=== PATIENT | male | born 1975 | race Caucasian/White ===

== ENCOUNTER 2018-07-20 09:03 | Inpatient (IN) | payer OTHER ==
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
[2018-07-20] MEDS ORDERED: MENTHOL/PHENOL 1 EACH UD MM PRN (10:16)
[2018-07-20] MEDS ORDERED: chlordiazePOXIDE HCL 25 MG CAPSULE PO ONE (10:16)
[2018-07-20] MEDS ORDERED: ACETAMINOPHEN 325 MG TABLET (FP) PO PRN (10:16)
[2018-07-20] MEDS ORDERED: MAGNESIUM HYDROX 2400MG/30ML ORAL SUSPENSION 30 ML CUP PO PRN (10:16)
[2018-07-20] MEDS ORDERED: chlordiazePOXIDE HCL 25 MG CAPSULE PO PRN (10:16)
[2018-07-20] MEDS ORDERED: NICOTINE POLACRILEX 2 MG GUM BUC PRN (10:16)
[2018-07-20] MEDS ORDERED: LOPERAMIDE HCL 2 MG CAPSULE PO PRN (10:16)
[2018-07-20] MEDS ORDERED: MAGNESIUM CITRATE 300 ML BOTTLE PO PRN (10:16)
[2018-07-20] MEDS ORDERED: MAG HYDROX/AL HYDROX/SIMETH 30 ML UNIT-DOSE CUP PO PRN (10:16)
[2018-07-20] MEDS ORDERED: guaiFENesin 200 MG/10 ML 10 ML UNIT-DOSE CUPS PO PRN (10:19)
[2018-07-20 10:21] VITALS: BMI 23.5
[2018-07-20] MEDS ORDERED: ALBUTEROL SO4 0.083% IH SOL 2.5 MG/3 ML VIAL.NEB. NEB PRN (10:27)
[2018-07-20] MEDS: NICOTINE 21 MG/24 HOURS TOPICAL PATCH TD SCH (12:14)
[2018-07-20] MEDS: PANTOPRAZOLE 20 MG TABLET (FP) PO SCH (12:14)
[2018-07-20 16:36] LABS: URINE APPEARANCE CLEAR; URINE BILIRUBIN NEGATIVE (<2.0 mg/dL); URINE COLOR DKYELLOW; URINE GLUCOSE (UA) NEGATIVE (NEGATIVE); URINE KETONE NEGATIVE (NEGATIVE); URINE LEUK ESTERASE NEGATIVE (NEGATIVE); URINE NITRITE NEGATIVE (NEGATIVE); URINE PROTEIN 1+ (NEGATIVE)
[2018-07-20 16:55] LABS: EPI CELLS RARE /HPF (FEW); URINE MUCUS RARE
[2018-07-20] MEDS: chlordiazePOXIDE HCL 25 MG CAPSULE PO SCH ×2 (17:22→22:05)
[2018-07-20] MEDS: IBUPROFEN 400 MG TABLET (FP) PO PRN (17:24)
[2018-07-20] MEDS: levETIRAcetam 500 MG TABLET (FP) PO SCH (22:04)
[2018-07-20] MEDS: MELATONIN 5 MG TABLETS PO PRN (22:06)
[2018-07-20] MEDS: THIAMINE HCL 100 MG TABLET (FP) PO SCH (23:17)
[2018-07-21] MEDS: chlordiazePOXIDE HCL 25 MG CAPSULE PO SCH ×4 (05:15→22:21)
[2018-07-21] MEDS: NICOTINE 21 MG/24 HOURS TOPICAL PATCH TD SCH (10:15)
[2018-07-21] MEDS: levETIRAcetam 500 MG TABLET (FP) PO SCH ×2 (10:16→22:21)
[2018-07-21] MEDS: PRENATAL VITAMINS W/ FOLIC ACID TABLET (FP) PO SCH (10:16)
[2018-07-21] MEDS: PANTOPRAZOLE 20 MG TABLET (FP) PO SCH (10:17)
[2018-07-21 10:37] LABS: HEMATOCRIT 39.8 % (35.4-49); HEMOGLOBIN 12.9 GM/dL (11.7-16.9); MCH 29.1 pg (25.7-33.7); MCHC 32.5 g/dl (32.0-35.9); MEAN CELL VOLUME 89.4 fl (80-96); PLATELET COUNT 293 K/MM3 (134-434); RBC 4.45 M/mm3 (4.00-5.60); RDW 15.2 % (11.9-15.9); WHITE BLOOD COUNT 6.3 K/mm3 (4.0-10.0)
[2018-07-21 10:56] LABS: ALBUMIN 3.1 g/dl (3.4-5.0); ALK PHOS 91 U/L (45-117); ANION GAP 9 MMOL/L (8-16); BILIRUBIN,TOTAL 0.8 mg/dL (0.2-1); BLOOD UREA NITROGEN 7 mg/dL (7-18); CALCIUM 8.8 mg/dL (8.5-10.1); CHLORIDE 103 mmol/L (98-107); CO2 27 mmol/L (21-32); CREATININE 0.7 mg/dL (0.55-1.3); GLUCOSE,RANDOM 123 mg/dL (74-106); POTASSIUM 3.6 mmol/L (3.5-5.1); SGOT/AST 33 U/L (15-37); SGPT/ALT 66 U/L (13-61); SODIUM 138 mmol/L (136-145); TOT PROT 6.3 g/dl (6.4-8.2)
[2018-07-21] MEDS ORDERED: PNEUMOC 13-VAL CONJ-DIP CRM/PF 0.5 ML DISP.SYRIN IM ONE ×2 (12:00)
[2018-07-21] MEDS ORDERED: PNEUMOCOCCAL 23 VACCINE 0.5 ML VIAL IM ONE (12:00)
--- NOTE | 2018-07-21 12:22 | EKG ---
Test Reason : Blood Pressure : / mmHG Vent. Rate : 059 BPM Atrial Rate : 059 BPM P-R Int : 126 ms QRS Dur : 088 ms QT Int : 432 ms P-R-T Axes : 034 046 043 degrees QTc Int : 427 ms SINUS BRADYCARDIA WITH SINUS ARRHYTHMIA OTHERWISE NORMAL ECG NO PREVIOUS ECGS AVAILABLE Confirmed by BREANNA KAYE MD ([id number]) on 07/21/2018 12:22:06 PM Referred By: FAIZAN CRUZ Confirmed By:BREANNA KAYE MD
--- NOTE | 2018-07-21 14:54 | PN ---
[facility] CIWA - CIWA Score Nausea/Vomitin-Mild Nausea/No Vomiting Muscle Tremors: 4-Moderate,w/Arms Extend Anxiety: 3 Agitation: 3 Paroxysmal Sweats: 1-Minimal Palms Moist Orientation: 2-Disoriented Date<2 days Tacttile Disturbances: 0-None Auditory Disturbances: 0-None Visual Disturbances: 0-None Headache: 2-Mild CIWA-Ar Total Score: 16 BHS Progress Note (SOAP) Subjective: headaches tremor sweat restlessness gi distress anxiety Objective: 07/21/18 14:53 Vital Signs Temperature 97.3 F L 07/21/18 09:25 Pulse Rate 63 07/21/18 09:25 Respiratory Rate 18 07/21/18 09:25 Blood Pressure 122/75 07/21/18 09:25 O2 Sat by Pulse Oximetry (%) Laboratory Last Values WBC 6.3 K/mm3 (4.0-10.0) 07/21/18 07:30 RBC 4.45 M/mm3 (4.00-5.60) 07/21/18 07:30 Hgb 12.9 GM/dL (11.7-16.9) 07/21/18 07:30 Hct 39.8 % (35.4-49) 07/21/18 07:30 MCV 89.4 fl (80-96) 07/21/18 07:30 MCH 29.1 pg (25.7-33.7) D 07/21/18 07:30 MCHC 32.5 g/dl (32.0-35.9) 07/21/18 07:30 RDW 15.2 % (11.9-15.9) D 07/21/18 07:30 Plt Count 293 K/MM3 (134-434) 07/21/18 07:30 MPV 8.0 fl (7.5-11.1) 07/21/18 07:30 Sodium 138 mmol/L (136-145) 07/21/18 07:30 Potassium 3.6 mmol/L (3.5-5.1) 07/21/18 07:30 Chloride 103 mmol/L (98-107) 07/21/18 07:30 Carbon Dioxide 27 mmol/L (21-32) 07/21/18 07:30 Anion Gap 9 MMOL/L (8-16) 07/21/18 07:30 BUN 7 mg/dL (7-18) 07/21/18 07:30 Creatinine 0.7 mg/dL (0.55-1.3) 07/21/18 07:30 Creat Clearance w eGFR > 60 (>60) 07/21/18 07:30 Random Glucose 123 mg/dL (74-106) H 07/21/18 07:30 Calcium 8.8 mg/dL (8.5-10.1) 07/21/18 07:30 Total Bilirubin 0.8 mg/dL (0.2-1) 07/21/18 07:30 AST 33 U/L (15-37) 07/21/18 07:30 ALT 66 U/L (13-61) H 07/21/18 07:30 Alkaline Phosphatase 91 U/L (45-117) 07/21/18 07:30 Total Protein 6.3 g/dl (6.4-8.2) L 07/21/18 07:30 Albumin 3.1 g/dl (3.4-5.0) L 07/21/18 07:30 Urine Color Dkyellow 07/20/18 15:50 Urine Appearance Clear 07/20/18 15:50 Urine pH 6.0 (5.0-8.0) 07/20/18 15:50 Ur Specific [place] 1.023 (1.010-1.035) 07/20/18 15:50 Urine Protein 1+ (NEGATIVE) H 07/20/18 15:50 Urine Glucose (UA) Negative (NEGATIVE) 07/20/18 15:50 Urine Ketones Negative (NEGATIVE) 07/20/18 15:50 Urine Blood Negative (NEGATIVE) 07/20/18 15:50 Urine Nitrite Negative (NEGATIVE) 07/20/18 15:50 Urine Bilirubin Negative (<2.0 mg/dL) 07/20/18 15:50 Urine Urobilinogen 2.0 mg/dL (0.2-1.0) 07/20/18 15:50 Ur Leukocyte Esterase Negative (NEGATIVE) 07/20/18 15:50 Urine WBC (Auto) 1 /hpf (3-5) 07/20/18 15:50 Urine RBC (Auto) 1 /hpf (0-3) 07/20/18 15:50 Ur Epithelial Cells Rare /HPF (FEW) 07/20/18 15:50 Urine Mucus Rare 07/20/18 15:50 RPR Titer Nonreactive (NONREACTIVE) 07/21/18 07:30 HIV 1&2 Antibody Screen Negative 07/21/18 07:30 HIV P24 Antigen Negative 07/21/18 07:30 lab noted Assessment: 07/21/18 14:54 withdrawal sx Plan: continue detox
[2018-07-21] MEDS: IBUPROFEN 400 MG TABLET (FP) PO PRN (16:47)
[2018-07-21] MEDS: THIAMINE HCL 100 MG TABLET (FP) PO SCH (22:21)
[2018-07-21] MEDS: MELATONIN 5 MG TABLETS PO PRN (22:22)
[2018-07-22] MEDS: chlordiazePOXIDE HCL 25 MG CAPSULE PO SCH ×2 (05:19→10:27)
[2018-07-22] MEDS ORDERED: CLOTRIMAZOLE 1% CREAM 15 GM TUBE TP SCH (10:00)
[2018-07-22] MEDS ORDERED: CLOTRIMAZOLE/BETAMET DIPROP TOPICAL CREAM 45 GM TUBE TP SCH (10:00)
--- NOTE | 2018-07-22 10:03 | PN ---
[facility] CIWA - CIWA Score Nausea/Vomitin-No Nausea/No Vomiting Muscle Tremors: 3 Anxiety: 4-Mod. Anxious/Guarded Agitation: 4-Moderately Restless Paroxysmal Sweats: 3 Orientation: 0-Oriented Tacttile Disturbances: 3-Moderate Itch/Numb/Burn Auditory Disturbances: 0-None Visual Disturbances: 0-None Headache: 0-None Present CIWA-Ar Total Score: 17 BHS Progress Note (SOAP) Subjective: Tremors, Sweating, Anxious. Patient reports areas of skin on bilateral ribcages and hip areas that feel "itchy." Patient also reports peeling skin near tip of middle finger of right hand. Objective: PATIENT A & O X 3, OBSERVED AMBULATING ON UNIT. IN NO ACUTE DISTRESS. CLUSTER OF SMALL ELEVATED ERYTHEMATOUS LESIONS NOTED ON BI;LATERAL RIBCAGE AREAS (UPPER ASPECT) AND IN BILATERAL HIP (ASIS) AREAS. NO DISCHARGE NOTED AT AFFECTED SITES. PEELING SKIN NOTED NEAR TIP AND P.I.P. ON MIDDLE FINGER OF RIGHT HAND. ERYTHEMA NOTED ON UNDERLYING SKIN. NO UNUSUAL DISCHARGE NOTED AT SITE. 07/22/18 09:58 Vital Signs Temperature 97.2 F L 07/22/18 09:43 Pulse Rate 94 H 07/22/18 09:43 Respiratory Rate 18 07/22/18 09:43 Blood Pressure 111/78 07/22/18 09:43 O2 Sat by Pulse Oximetry (%) Laboratory Tests 07/20/18 07/21/18 07/21/18 15:50 07:30 07:30 WBC 6.3 RBC 4.45 Hgb 12.9 Hct 39.8 MCV 89.4 MCH 29.1 D MCHC 32.5 RDW 15.2 D Plt Count 293 MPV 8.0 Sodium 138 Potassium 3.6 Chloride 103 Carbon Dioxide 27 Anion Gap 9 BUN 7 Creatinine 0.7 Creat Clearance w eGFR > 60 Random Glucose 123 H Calcium 8.8 Total Bilirubin 0.8 AST 33 ALT 66 H Alkaline Phosphatase 91 Total Protein 6.3 L Albumin 3.1 L Urine Color Dkyellow Urine Appearance Clear Urine pH 6.0 Ur Specific [place] 1.023 Urine Protein 1+ H Urine Glucose (UA) Negative Urine Ketones Negative Urine Blood Negative Urine Nitrite Negative Urine Bilirubin Negative Urine Urobilinogen 2.0 Ur Leukocyte Esterase Negative Urine WBC (Auto) 1 Urine RBC (Auto) 1 Ur Epithelial Cells Rare Urine Mucus Rare RPR Titer HIV 1&2 Antibody Screen HIV P24 Antigen 07/21/18 07/21/18 07:30 07:30 WBC RBC Hgb Hct MCV MCH MCHC RDW Plt Count MPV Sodium Potassium Chloride Carbon Dioxide Anion Gap BUN Creatinine Creat Clearance w eGFR Random Glucose Calcium Total Bilirubin AST ALT Alkaline Phosphatase Total Protein Albumin Urine Color Urine Appearance Urine pH Ur Specific [place] Urine Protein Urine Glucose (UA) Urine Ketones Urine Blood Urine Nitrite Urine Bilirubin Urine Urobilinogen Ur Leukocyte Esterase Urine WBC (Auto) Urine RBC (Auto) Ur Epithelial Cells Urine Mucus RPR Titer Nonreactive HIV 1&2 Antibody Screen Negative HIV P24 Antigen Negative LABS NOTED. LEVETIRACETAM LEVEL PENDING. 07/22/18 09:59 Assessment: 07/22/18 09:59 WITHDRAWAL SYMPTOMS. DERMATITIS. FUNGAL INFECTION OF SKIN OF MIDDLE FINGER OF RIGHT HAND. 07/22/18 10:09 Plan: CONTINUE DETOX. LOTRISONE TOPICAL FOR DERRMATITIS ON BILATERAL RIBCAGES AND HIP AREAS. CLOTRIMAZOLE TOPICAL FOR AFFECTED AREA OF SKIN NEAR TIP OF MIDDLE FINGER OF RIGHT HAND. INCREASE DAILY PO FLUID INTAKE.
[2018-07-22] MEDS: PANTOPRAZOLE 20 MG TABLET (FP) PO SCH (10:27)
[2018-07-22] MEDS: NICOTINE 21 MG/24 HOURS TOPICAL PATCH TD SCH (10:27)
[2018-07-22] MEDS: PRENATAL VITAMINS W/ FOLIC ACID TABLET (FP) PO SCH (10:27)
[2018-07-22] MEDS: levETIRAcetam 500 MG TABLET (FP) PO SCH ×2 (10:27→22:27)
[2018-07-22] MEDS: CLOTRIMAZOLE/BETAMET DIPROP TOPICAL CREAM 45 GM TUBE TP SCH ×2 (14:37→22:28)
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
[2018-07-22] MEDS: IBUPROFEN 400 MG TABLET (FP) PO PRN (17:31)
[2018-07-22] MEDS: chlordiazePOXIDE 5 MG CAPSULE PO SCH ×2 (17:31→22:26)
[2018-07-22] MEDS ORDERED: MELATONIN 5 MG TABLETS PO PRN (22:00)
[2018-07-22] MEDS: THIAMINE HCL 100 MG TABLET (FP) PO SCH (22:28)
[2018-07-23] MEDS: chlordiazePOXIDE 5 MG CAPSULE PO SCH ×2 (06:42→10:45)
--- NOTE | 2018-07-23 10:14 | PN ---
BHS Progress Note (SOAP) Subjective: feeling better today less sweat no gi distress right lateral trunk rashes "getting better" sleep better at night Objective: 07/23/18 14:19 Vital Signs Temperature 97.6 F 07/23/18 10:59 Pulse Rate 70 07/23/18 10:59 Respiratory Rate 20 07/23/18 10:59 Blood Pressure 110/90 07/23/18 10:59 O2 Sat by Pulse Oximetry (%) Laboratory Last Values WBC 6.3 K/mm3 (4.0-10.0) 07/21/18 07:30 RBC 4.45 M/mm3 (4.00-5.60) 07/21/18 07:30 Hgb 12.9 GM/dL (11.7-16.9) 07/21/18 07:30 Hct 39.8 % (35.4-49) 07/21/18 07:30 MCV 89.4 fl (80-96) 07/21/18 07:30 MCH 29.1 pg (25.7-33.7) D 07/21/18 07:30 MCHC 32.5 g/dl (32.0-35.9) 07/21/18 07:30 RDW 15.2 % (11.9-15.9) D 07/21/18 07:30 Plt Count 293 K/MM3 (134-434) 07/21/18 07:30 MPV 8.0 fl (7.5-11.1) 07/21/18 07:30 Sodium 138 mmol/L (136-145) 07/21/18 07:30 Potassium 3.6 mmol/L (3.5-5.1) 07/21/18 07:30 Chloride 103 mmol/L (98-107) 07/21/18 07:30 Carbon Dioxide 27 mmol/L (21-32) 07/21/18 07:30 Anion Gap 9 MMOL/L (8-16) 07/21/18 07:30 BUN 7 mg/dL (7-18) 07/21/18 07:30 Creatinine 0.7 mg/dL (0.55-1.3) 07/21/18 07:30 Creat Clearance w eGFR > 60 (>60) 07/21/18 07:30 Random Glucose 123 mg/dL (74-106) H 07/21/18 07:30 Calcium 8.8 mg/dL (8.5-10.1) 07/21/18 07:30 Total Bilirubin 0.8 mg/dL (0.2-1) 07/21/18 07:30 AST 33 U/L (15-37) 07/21/18 07:30 ALT 66 U/L (13-61) H 07/21/18 07:30 Alkaline Phosphatase 91 U/L (45-117) 07/21/18 07:30 Total Protein 6.3 g/dl (6.4-8.2) L 07/21/18 07:30 Albumin 3.1 g/dl (3.4-5.0) L 07/21/18 07:30 Urine Color Dkyellow 07/20/18 15:50 Urine Appearance Clear 07/20/18 15:50 Urine pH 6.0 (5.0-8.0) 07/20/18 15:50 Ur Specific [place] 1.023 (1.010-1.035) 07/20/18 15:50 Urine Protein 1+ (NEGATIVE) H 07/20/18 15:50 Urine Glucose (UA) Negative (NEGATIVE) 07/20/18 15:50 Urine Ketones Negative (NEGATIVE) 07/20/18 15:50 Urine Blood Negative (NEGATIVE) 07/20/18 15:50 Urine Nitrite Negative (NEGATIVE) 07/20/18 15:50 Urine Bilirubin Negative (<2.0 mg/dL) 07/20/18 15:50 Urine Urobilinogen 2.0 mg/dL (0.2-1.0) 07/20/18 15:50 Ur Leukocyte Esterase Negative (NEGATIVE) 07/20/18 15:50 Urine WBC (Auto) 1 /hpf (3-5) 07/20/18 15:50 Urine RBC (Auto) 1 /hpf (0-3) 07/20/18 15:50 Ur Epithelial Cells Rare /HPF (FEW) 07/20/18 15:50 Urine Mucus Rare 07/20/18 15:50 RPR Titer Nonreactive (NONREACTIVE) 07/21/18 07:30 HIV 1&2 Antibody Screen Negative 07/21/18 07:30 HIV P24 Antigen Negative 07/21/18 07:30 lab noted Assessment: 07/23/18 14:20 mild withdrawal sx Plan: medically supervised detox
[2018-07-23] MEDS: levETIRAcetam 500 MG TABLET (FP) PO SCH ×2 (10:45→22:21)
[2018-07-23] MEDS: PANTOPRAZOLE 20 MG TABLET (FP) PO SCH (10:45)
[2018-07-23] MEDS: FLUoxetine HCL 20 MG CAPSULE (FP) PO SCH (10:45)
[2018-07-23] MEDS: PRENATAL VITAMINS W/ FOLIC ACID TABLET (FP) PO SCH (10:45)
[2018-07-23] MEDS: CLOTRIMAZOLE/BETAMET DIPROP TOPICAL CREAM 45 GM TUBE TP SCH ×2 (10:47→22:21)
[2018-07-23] MEDS: NICOTINE 21 MG/24 HOURS TOPICAL PATCH TD SCH (10:48)
--- NOTE | 2018-07-23 14:42 | PN ---
Psychiatric Progress Note Vital Signs: Vital Signs Period Temp Pulse Resp BP Sys/Lizama Pulse Ox Last 24 Hr 96.8 F-98.1 F 53-84 16-20 110-130/73-90 Date of Session: 07/23/18 Chief Complaint:: " I am nervous. I need medication and ukrainian books to read". HPI: Patient is re-evaluated with assistance from official bilingual interpreter # [id number]. Day 3 of detoxification for alcohol dependence. Counselor Kumar requested this follow-up for clarification of bilingual interpreter's statement that the patient has threatened to hurt himself. Hospital course has been uneventful until the observation that Mr Can is increasingly irritable, hostile and overly anxious on approach. ROS: Patient is alert and fully oriented. Ambulatory (cane). Well groomed. Anxious. Current Medications: Active Medications Generic Name Dose Route Start Last Admin Trade Name Freq PRN Reason Stop Dose Admin Acetaminophen 650 mg 07/20/18 10:16 Tylenol - PO Q4H PRN FEVER Al Hydroxide/Mg Hydroxide 30 ml 07/20/18 10:16 Mylanta Oral Suspension - PO Q6H PRN DYSPEPSIA Albuterol Sulfate 1 amp 07/20/18 10:27 Ventolin 0.083% Nebulizer Soln - NEB Q4H PRN SHORT OF BREATH/WHEEZING Chlordiazepoxide HCl 10 mg 07/23/18 17:00 Librium - PO 07/24/18 11:01 [id number] YUE Clotrimazole 1 applic 07/22/18 10:30 07/23/18 10:47 Lotrisone Cream (Large Tube) - TP 1 appful BID YUE Administration Eucalyptus/Menthol/Phenol/Sorbitol 1 each 07/20/18 10:16 Cepastat Lozenge - MM Q4H PRN SORE THROAT Fluoxetine HCl 20 mg 07/23/18 10:00 07/23/18 10:45 Prozac - PO 20 mg DAILY YUE Administration Guaifenesin 10 ml 07/20/18 10:19 Robitussin - PO Q4H PRN COUGH Ibuprofen 400 mg 07/20/18 10:16 07/22/18 17:31 Motrin - PO 400 mg Q6H PRN Administration PAIN LEVEL 4-6 Levetiracetam 1,000 mg 07/20/18 22:00 01/02/19 10:45 Keppra - PO 1,000 mg BID UYE Administration Loperamide HCl 4 mg 07/20/18 10:16 Imodium - PO Q6H PRN DIARRHEA Magnesium Citrate 300 ml 07/20/18 10:16 Citroma - PO Q48H PRN CONSTIPATION Magnesium Hydroxide 30 ml 07/20/18 10:16 Milk Of Magnesia - PO DAILY PRN CONSTIPATION Melatonin 10 mg 07/22/18 22:00 Melatonin PO HS PRN INSOMNIA Nicotine 21 mg 07/20/18 10:30 07/23/18 10:48 Nicoderm Patch - TD Not Given DAILY YUE Nicotine Polacrilex 2 mg 07/20/18 10:16 Nicorette Gum - BUC Q2H PRN NICOTINE REPLACEMENT RX Pantoprazole Sodium 20 mg 07/20/18 10:30 07/23/18 10:45 Protonix - PO 20 mg DAILY YUE Administration Multivit/Folic Acid/Iron 1 tab 07/21/18 10:00 07/23/18 10:45 Vitamins (Sjr) - PO 1 tab DAILY YUE Administration Thiamine HCl 100 mg 07/20/18 22:00 07/22/18 22:28 Vitamin B1 - PO 100 mg HS YUE Administration Current Side Effect: No Lab tests ordered: No Lab tests reviewed: Yes Provider note:: Chart reviewed. Consult note from hot plate plywood press offbearer Julian Calderon : read + appreciated. Nurses's progress notes revisited. Met with patient. Interview conducted through official translation (ukrainian bilingual interpreter). Total face to face time:: 35 Mental Status Exam - Mental Status Exam Alert and Oriented to: Time, Place, Person Cognitive Function: Good Patient Appearance: Well Groomed (well shaven, bald-headed ; appears stated age) Mood: Nervous, Anxious, Irritable (at the beginning of interview ; patient got calmer as conversation went on) Affect: Appropriate, Mood Congruent Patient Behavior: Guarded (at first; becomes more cooperative and accomodating) , Appropriate (after the initial five minutes of the interview), Cooperative Voice Loudness: Normal Thought Process: Goal Oriented (appropriate conduct in response to program writer's translated answers) Hallucinations: Denies Suicidal Ideation: Denies Homicidal Ideation: Denies Insight/Judgement: Fair (as evidenced by his calming down upon learning, from ukrainian bilingual interpreter, that his requests are validated and soon to be honored) Sleep: Fair Appetite: Good Gait/Station: Other (walks with a cane) Psychiatric Treatment Plan - Problem List (1) Alcohol dependence with uncomplicated withdrawal Current Visit: Yes Comment: . (2) Alcohol-induced mood disorder Current Visit: Yes Comment: . (3) Nicotine dependence Current Visit: Yes Qualifiers: Nicotine product type: cigarettes Substance use status: uncomplicated Qualified Code(s): F17.210 - Nicotine dependence, cigarettes, uncomplicated Comment: . (4) Insomnia Current Visit: Yes Comment: .
[2018-07-23] MEDS: chlordiazePOXIDE HCL 10 MG CAPSULE PO SCH ×2 (17:38→22:22)
[2018-07-23] MEDS: THIAMINE HCL 100 MG TABLET (FP) PO SCH (22:21)
[2018-07-23] MEDS ORDERED: ALBUTEROL SO4 8 GM HFA INHALER IH ONE (22:48)
[2018-07-23] MEDS ORDERED: ALBUTEROL SO4 8 GM HFA INHALER IH PRN (22:55)
[2018-07-24] MEDS: chlordiazePOXIDE HCL 10 MG CAPSULE PO SCH ×2 (05:36→11:02)
[2018-07-24 06:44] VITALS: BP 115/82; PULSE 53; TEMP 96.8
--- NOTE | 2018-07-24 10:34 | DS ---
[facility] Detox Discharge Summary Admission Date: 07/20/18 Discharge Date: 07/24/18 - History Present History: Alcohol Dependence Additional Comments: 43 years old male admitted on 07/20/18 for alcohol withdrawal stabilization completed detox regimen tolerated well alert no acute distress aftercare [facility] Physical Exam Results Vital Signs: Vital Signs Temperature 96.8 F L 07/24/18 06:43 Pulse Rate 53 L 07/24/18 06:43 Respiratory Rate 18 07/24/18 06:43 Blood Pressure 115/82 07/24/18 06:43 O2 Sat by Pulse Oximetry (%) Pertinent Admission Physical Exam Findings: alcohol withdrawal sx Laboratory Last Values WBC 6.3 K/mm3 (4.0-10.0) 07/21/18 07:30 RBC 4.45 M/mm3 (4.00-5.60) 07/21/18 07:30 Hgb 12.9 GM/dL (11.7-16.9) 07/21/18 07:30 Hct 39.8 % (35.4-49) 07/21/18 07:30 MCV 89.4 fl (80-96) 07/21/18 07:30 MCH 29.1 pg (25.7-33.7) D 07/21/18 07:30 MCHC 32.5 g/dl (32.0-35.9) 07/21/18 07:30 RDW 15.2 % (11.9-15.9) D 07/21/18 07:30 Plt Count 293 K/MM3 (134-434) 07/21/18 07:30 MPV 8.0 fl (7.5-11.1) 07/21/18 07:30 Sodium 138 mmol/L (136-145) 07/21/18 07:30 Potassium 3.6 mmol/L (3.5-5.1) 07/21/18 07:30 Chloride 103 mmol/L (98-107) 07/21/18 07:30 Carbon Dioxide 27 mmol/L (21-32) 07/21/18 07:30 Anion Gap 9 MMOL/L (8-16) 07/21/18 07:30 BUN 7 mg/dL (7-18) 07/21/18 07:30 Creatinine 0.7 mg/dL (0.55-1.3) 07/21/18 07:30 Creat Clearance w eGFR > 60 (>60) 07/21/18 07:30 Random Glucose 123 mg/dL (74-106) H 07/21/18 07:30 Calcium 8.8 mg/dL (8.5-10.1) 07/21/18 07:30 Total Bilirubin 0.8 mg/dL (0.2-1) 07/21/18 07:30 AST 33 U/L (15-37) 07/21/18 07:30 ALT 66 U/L (13-61) H 07/21/18 07:30 Alkaline Phosphatase 91 U/L (45-117) 07/21/18 07:30 Total Protein 6.3 g/dl (6.4-8.2) L 07/21/18 07:30 Albumin 3.1 g/dl (3.4-5.0) L 07/21/18 07:30 Urine Color Dkyellow 07/20/18 15:50 Urine Appearance Clear 07/20/18 15:50 Urine pH 6.0 (5.0-8.0) 07/20/18 15:50 Ur Specific [place] 1.023 (1.010-1.035) 07/20/18 15:50 Urine Protein 1+ (NEGATIVE) H 07/20/18 15:50 Urine Glucose (UA) Negative (NEGATIVE) 07/20/18 15:50 Urine Ketones Negative (NEGATIVE) 07/20/18 15:50 Urine Blood Negative (NEGATIVE) 07/20/18 15:50 Urine Nitrite Negative (NEGATIVE) 07/20/18 15:50 Urine Bilirubin Negative (<2.0 mg/dL) 07/20/18 15:50 Urine Urobilinogen 2.0 mg/dL (0.2-1.0) 07/20/18 15:50 Ur Leukocyte Esterase Negative (NEGATIVE) 07/20/18 15:50 Urine WBC (Auto) 1 /hpf (3-5) 07/20/18 15:50 Urine RBC (Auto) 1 /hpf (0-3) 07/20/18 15:50 Ur Epithelial Cells Rare /HPF (FEW) 07/20/18 15:50 Urine Mucus Rare 07/20/18 15:50 RPR Titer Nonreactive (NONREACTIVE) 07/21/18 07:30 HIV 1&2 Antibody Screen Negative 07/21/18 07:30 HIV P24 Antigen Negative 07/21/18 07:30 lab noted - Treatment Hospital Course: Detox Protocol Followed, Detoxed Safely, Responded well, Discharged Condition Good, Rehab Referral Accepted Patient has Accepted a Rehab Referral to: [facility] - Medication Discharge Medications: Ambulatory Orders Fluoxetine HCl [Prozac] 20 mg PO DAILY 07/22/18 Albuterol Sulfate Inhaler - [Ventolin HFA Inhaler -] 2 inh PO Q4H PRN #1 inhaler 07/23/18 levETIRAcetam [Keppra -] 1,000 mg PO BID #60 tablet 07/23/18 - Diagnosis (1) Seizure Current Visit: Yes Status: Chronic (2) Alcohol dependence with uncomplicated withdrawal Current Visit: Yes Status: Acute (3) Asthma Current Visit: Yes Status: Chronic Qualifiers: Asthma severity: unspecified severity Asthma persistence: intermittent Asthma complication type: uncomplicated Qualified Code(s): J45.20 - Mild intermittent asthma, uncomplicated (4) Nicotine dependence Current Visit: Yes Status: Acute Qualifiers: Nicotine product type: cigarettes Substance use status: in withdrawal Qualified Code(s): F17.213 - Nicotine dependence, cigarettes, with withdrawal (5) Weight loss Current Visit: Yes Status: Acute - AMA Did Patient Leave Against Medical Advice: No
[2018-07-24] MEDS: PANTOPRAZOLE 20 MG TABLET (FP) PO SCH (11:03)
[2018-07-24] MEDS: NICOTINE 21 MG/24 HOURS TOPICAL PATCH TD SCH (11:03)
[2018-07-24] MEDS: levETIRAcetam 500 MG TABLET (FP) PO SCH (11:03)
[2018-07-24] MEDS: CLOTRIMAZOLE/BETAMET DIPROP TOPICAL CREAM 45 GM TUBE TP SCH (11:03)
[2018-07-24] MEDS: FLUoxetine HCL 20 MG CAPSULE (FP) PO SCH (11:03)
[2018-07-24] MEDS: PRENATAL VITAMINS W/ FOLIC ACID TABLET (FP) PO SCH (11:05)
== END 2018-07-24 14:26 | disposition other institution (70) | DRG 775 ==
LOC: YASAS 09:03 → Y3N 10:47
PROC: HZ2ZZZZ Detoxification Services for Substance Abuse Treatment (ICD-10-PCS; principal; 2018-07-20)
DX: F10.230 Alcohol dependence with withdrawal, uncomplicated (principal); F17.213 Nicotine dependence, cigarettes, with withdrawal; J45.20 Mild intermittent asthma, uncomplicated; G40.909 Epilepsy, unspecified, not intractable, without status epilepticus; L30.9 Dermatitis, unspecified; B36.9 Superficial mycosis, unspecified; M89.9 Disorder of bone, unspecified
CPT/HCPCS: 36415; 80053; 80177; 81003; 81015; 85027; 86593; 87389; 93005; 93010

== ENCOUNTER 2018-07-24 13:22 | Inpatient (IN) | payer OTHER ==
--- NOTE | 2018-07-24 10:38 | HP ---
[facility] Rehab Assess/Revision - Admission History Admitted to Rehab from: [facility] Date of Admission to Rehab: 07/24/18 - Findings Detox History & Physical reviewed: Yes Concur with findings: Yes Comments/Additional Findings: transferred from detox to rehab admission as per protocol Inpatient Rehab Admission - Initial Determination Are CD services needed?: Yes Free of communicable disease: Yes Not in need of hospitalization: Yes - Rehab Admission Criteria Previous failed treatment: Yes Poor recovery environment: Yes Comorbidities: Yes Lacks judgement: No Patient is meeting Inpatient Rehab admission criteria:: Yes
[~2018-07-24 13:22] MED LIST: ALBUTEROL SO4 8 GM HFA INHALER IH PRN; LOPERAMIDE HCL 2 MG CAPSULE PO PRN; MAG HYDROX/AL HYDROX/SIMETH 30 ML UNIT-DOSE CUP PO PRN; MAGNESIUM CITRATE 300 ML BOTTLE PO PRN; MAGNESIUM HYDROX 2400MG/30ML ORAL SUSPENSION 30 ML CUP PO PRN; MENTHOL/PHENOL 1 EACH UD MM PRN; NICOTINE 14 MG/24 HOURS TOPICAL PATCH TD PRN; NICOTINE POLACRILEX 2 MG GUM BUC PRN; P-EPHED 60MG/TRIPROLIDI 2.5MG TABLET PO PRN; guaiFENesin/D-METHORPHAN HB 10 ML UNIT-DOSE CUPS PO PRN
[2018-07-24] MEDS: IBUPROFEN 400 MG TABLET (FP) PO PRN (13:49)
[2018-07-24] MEDS: THIAMINE HCL 100 MG TABLET (FP) PO SCH (21:22)
[2018-07-24] MEDS: levETIRAcetam 500 MG TABLET (FP) PO SCH (21:22)
[2018-07-24] MEDS: CLOTRIMAZOLE 1% CREAM 15 GM TUBE TP SCH (21:24)
[2018-07-24] MEDS: MELATONIN 5 MG TABLETS PO PRN (21:24)
[2018-07-25] MEDS: levETIRAcetam 500 MG TABLET (FP) PO SCH ×2 (10:15→21:32)
[2018-07-25] MEDS: CLOTRIMAZOLE 1% CREAM 15 GM TUBE TP SCH ×3 (10:15→21:34)
[2018-07-25] MEDS: PRENATAL VITAMINS W/ FOLIC ACID TABLET (FP) PO SCH (10:15)
--- NOTE | 2018-07-25 11:14 | HP ---
Psychiatrist Admission - Data Date of interview: 07/25/18 Admission source: David/Dileep Identifying data: This is the first [facility] Rehabilitation admission for this 43 years old male, employed Medical History: Significant for bronchial asthma, seizure disorder and left leg weakness. Smokes cigarettes 1 ppd Psychiatric History: Psychiatric consultation completed with assistance from Mexican Intrepretor #[id number]. Patient reports a three month admission in 2018 at [facility] in [place] for depression and alcohol. States he was discharged approximately two-three months ago. As per pharmacy claims he was prescribed prozac 20mg + Naltrexone 50mg BID + Gabapentin 800mg BID + Keppra 500mg BID. Patient has not accepted medications in three months. Patient denies h/o outpatient psychiatric care. At present he reports depressed mood. He denies h/o suicide attempt. Vital Signs: Vital Signs - 24 hr 07/24/18 07/25/18 07/25/18 13:39 00:30 03:30 Temperature 98.3 F Pulse Rate 79 Respiratory 18 20 20 Rate Blood Pressure 126/86 07/25/18 07/25/18 07/25/18 07:04 07:17 07:58 Temperature 97.8 F 97.8 F Pulse Rate 68 68 63 Respiratory 20 16 16 Rate Blood Pressure 106/66 106/66 125/80 Allergies/Adverse Reactions: Allergies Allergy/AdvReac Type Severity Reaction Status Date / Time No Known Allergies Allergy Verified 07/24/18 14:02
--- NOTE | 2018-07-25 12:05 | HP ---
<Elly Guillermo - Last Filed: 07/25/18 12:33> Psychiatrist Admission - Data Date of interview: 07/25/18 Admission source: [address] [place] [address] Identifying data: This is the first admission to [address] [place] [address] inpatient rehabilitation for this 43 years old turkmen single male father of 2 (14,16 yo), resides in senior care ,supported by [facility]. Medical History: Seizure disorder,BA,H/O R leg fracture [id number]. Psychiatric History: patient reports depression on and off for a few years .He was seen by psychiatrist while being in inpatient rehabilitaion at [facility] last summer(spent about 3 months).Patient was on Gabapentin,Trazodone. Physical/Sexual Abuse/Trauma History: patient denies Vital Signs: Vital Signs - 24 hr 07/24/18 07/25/18 07/25/18 13:39 00:30 03:30 Temperature 98.3 F Pulse Rate 79 Respiratory 18 20 20 Rate Blood Pressure 126/86 07/25/18 07/25/18 07/25/18 07:04 07:17 07:58 Temperature 97.8 F 97.8 F Pulse Rate 68 68 63 Respiratory 20 16 16 Rate Blood Pressure 106/66 106/66 125/80 Allergies/Adverse Reactions: Allergies Allergy/AdvReac Type Severity Reaction Status Date / Time No Known Allergies Allergy Verified 07/24/18 14:02 Date of last physical exam: 07/24/18 Concur with the findings of this exam: Yes - Substance Abuse/Tx History Hx Alcohol Use: Yes (reports drinking since 19 yo,one liter of vodka daily) Hx Substance Use: No Substance Use Type: Alcohol Hx Substance Use Treatment: Yes (longest abstinence about 6 months) Mental Status Exam - Mental Status Exam Alert and Oriented to: Time, Place, Person Cognitive Function: Grossly Intact Patient Appearance: Well Groomed Mood: Sad, Anxious Affect: Mood Congruent Patient Behavior: Cooperative Speech Pattern: Clear Voice Loudness: Normal Thought Process: Goal Oriented Thought Disorder: Not Present Hallucinations: Denies Suicidal Ideation: Denies Homicidal Ideation: Denies Insight/Judgement: Fair Sleep: Fair Appetite: Good Muscle strength/Tone: Normal Gait/Station: Normal Psychiatric Findings - Problem List ([place] 1, 2,3) (1) Alcohol dependence Current Visit: Yes Status: Chronic (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 (3) Dermatitis Current Visit: Yes Status: Chronic (4) Fungal infection of skin Current Visit: Yes Status: Chronic (5) Seizure disorder Current Visit: Yes Status: Chronic (6) Nicotine dependence Current Visit: Yes Status: Acute Qualifiers: Nicotine product type: cigarettes Substance use status: in withdrawal Qualified Code(s): F17.213 - Nicotine dependence, cigarettes, with withdrawal Comment: . 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 - Initial Treatment Plan Initial Treatment Plan: Will monitor progress. <Alexsandra Pitt - Last Filed: 07/29/18 13:57> Psychiatrist Admission - Data Vital Signs: Vital Signs - 24 hr 07/29/18 07/29/18 07/29/18 00:30 03:30 06:50 Temperature 98.1 F Pulse Rate 54 L Respiratory 18 18 16 Rate Blood Pressure 125/78
[2018-07-25] MEDS ORDERED: hydrOXYzine PAMOATE 50 MG CAPSULE (FP) PO PRN (12:25)
[2018-07-25] MEDS: NALTREXONE HCL 50 MG TABLET PO SCH (13:39)
[2018-07-25] MEDS: GABAPENTIN 400 MG CAPSULE (FP) PO SCH ×2 (13:39→21:32)
[2018-07-25] MEDS: hydrOXYzine PAMOATE 50 MG CAPSULE (FP) PO SCH ×3 (13:40→21:32)
[2018-07-25] MEDS: FLUoxetine HCL 20 MG CAPSULE (FP) PO SCH (13:40)
[2018-07-25] MEDS: IBUPROFEN 400 MG TABLET (FP) PO PRN (13:41)
[2018-07-25] MEDS: MELATONIN 5 MG TABLETS PO PRN (21:32)
[2018-07-25] MEDS: THIAMINE HCL 100 MG TABLET (FP) PO SCH (21:32)
[2018-07-26] MEDS: GABAPENTIN 400 MG CAPSULE (FP) PO SCH ×3 (06:26→21:22)
[2018-07-26] MEDS: CLOTRIMAZOLE 1% CREAM 15 GM TUBE TP SCH ×2 (09:48→21:24)
[2018-07-26] MEDS: NALTREXONE HCL 50 MG TABLET PO SCH (09:48)
[2018-07-26] MEDS: FLUoxetine HCL 20 MG CAPSULE (FP) PO SCH (09:48)
[2018-07-26] MEDS: ACETAMINOPHEN 325 MG TABLET (FP) PO PRN ×2 (09:49→21:24)
[2018-07-26] MEDS: levETIRAcetam 500 MG TABLET (FP) PO SCH ×2 (09:49→21:22)
[2018-07-26] MEDS: PRENATAL VITAMINS W/ FOLIC ACID TABLET (FP) PO SCH (09:49)
[2018-07-26] MEDS: hydrOXYzine PAMOATE 50 MG CAPSULE (FP) PO SCH ×4 (13:04→21:22)
[2018-07-26] MEDS: THIAMINE HCL 100 MG TABLET (FP) PO SCH (21:22)
[2018-07-27] MEDS: GABAPENTIN 400 MG CAPSULE (FP) PO SCH ×3 (06:47→21:37)
[2018-07-27] MEDS: hydrOXYzine PAMOATE 50 MG CAPSULE (FP) PO SCH ×4 (09:32→21:37)
[2018-07-27] MEDS: levETIRAcetam 500 MG TABLET (FP) PO SCH ×2 (09:33→21:37)
[2018-07-27] MEDS: PRENATAL VITAMINS W/ FOLIC ACID TABLET (FP) PO SCH (09:33)
[2018-07-27] MEDS: FLUoxetine HCL 20 MG CAPSULE (FP) PO SCH (09:33)
[2018-07-27] MEDS: CLOTRIMAZOLE 1% CREAM 15 GM TUBE TP SCH ×2 (09:34→22:08)
[2018-07-27] MEDS: NALTREXONE HCL 50 MG TABLET PO SCH (11:33)
[2018-07-27] MEDS: IBUPROFEN 400 MG TABLET (FP) PO PRN (11:44)
[2018-07-27] MEDS: THIAMINE HCL 100 MG TABLET (FP) PO SCH (21:37)
[2018-07-28] MEDS: GABAPENTIN 400 MG CAPSULE (FP) PO SCH ×3 (06:34→21:07)
[2018-07-28] MEDS: ACETAMINOPHEN 325 MG TABLET (FP) PO PRN (08:52)
[2018-07-28] MEDS: levETIRAcetam 500 MG TABLET (FP) PO SCH ×2 (10:25→21:07)
[2018-07-28] MEDS: PRENATAL VITAMINS W/ FOLIC ACID TABLET (FP) PO SCH (10:25)
[2018-07-28] MEDS: FLUoxetine HCL 20 MG CAPSULE (FP) PO SCH (10:25)
[2018-07-28] MEDS: hydrOXYzine PAMOATE 50 MG CAPSULE (FP) PO SCH ×4 (10:25→21:07)
[2018-07-28] MEDS: CLOTRIMAZOLE 1% CREAM 15 GM TUBE TP SCH (10:26)
[2018-07-28] MEDS: NALTREXONE HCL 50 MG TABLET PO SCH (10:27)
[2018-07-28] MEDS ORDERED: HYDROCORTISONE 1% TOPICAL CREAM 30 GM TUBE TP SCH (15:00)
--- NOTE | 2018-07-28 15:04 | PN ---
[facility] Progress Note Note: PT C/O ITCHY RASH TO UPPER CHEST REPORTING HE MIGHT HAVE BEEN BITTEN BY INSECT( BED BUG) WHILE IN DETOX. REVIEW OF DETOX NOTES INDICATED ONGOING C/O RASH BUT NO INDICATION OF BED BUG BITE. PT WAS ADMITTED TO REHAB ON 07/24/18 FROM DETOX. PT REPORTS HE SHAVED HIS CHEST TODAY. ALERT O X 3. 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 Vital Signs - 24 hr 07/28/18 07/28/18 03:30 07:09 Temperature 97.5 F L Pulse Rate 88 Respiratory 20 16 Rate Blood Pressure 116/79 SOME SCATTERED AREAS OF RED PAPULAR RASH ON UPPER CHEST AND SHOULDERS. BACK EXAM WITH GENERALIZED BROWN MACULAR SPOTS. NAD PLAN:HYDROCORTISONE CREAM 1% APPLY TO CHEST DIRECTED.
[2018-07-28] MEDS ORDERED: HYDROCORTISONE 1% TOPICAL CREAM 30 GM TUBE TP ONE (15:35)
[2018-07-28] MEDS: IBUPROFEN 400 MG TABLET (FP) PO PRN (16:53)
[2018-07-28] MEDS: HYDROCORTISONE 1% TOPICAL CREAM 30 GM TUBE TP SCH (21:07)
[2018-07-28] MEDS: THIAMINE HCL 100 MG TABLET (FP) PO SCH (21:07)
[2018-07-28] MEDS: MELATONIN 5 MG TABLETS PO PRN (21:08)
[2018-07-29] MEDS: GABAPENTIN 400 MG CAPSULE (FP) PO SCH ×2 (06:21→14:23)
[2018-07-29] MEDS: HYDROCORTISONE 1% TOPICAL CREAM 30 GM TUBE TP SCH ×2 (06:21→14:23)
[2018-07-29 06:51] VITALS: BP 125/78; PULSE 54; TEMP 98.1
[2018-07-29] MEDS: FLUoxetine HCL 20 MG CAPSULE (FP) PO SCH (10:21)
[2018-07-29] MEDS: levETIRAcetam 500 MG TABLET (FP) PO SCH (10:21)
[2018-07-29] MEDS: hydrOXYzine PAMOATE 50 MG CAPSULE (FP) PO SCH ×2 (10:21→14:23)
[2018-07-29] MEDS: NALTREXONE HCL 50 MG TABLET PO SCH (10:22)
[2018-07-29] MEDS: PRENATAL VITAMINS W/ FOLIC ACID TABLET (FP) PO SCH (10:22)
--- NOTE | 2018-07-29 14:00 | PN ---
[facility] Progress Note Note: Called by nursing staff requesting discharge order for patient. Patient is discharged today and referred back to his [facility]. Scripts for Prozac, Naltrexone and Vistaril electronically transferred to [facility] pharmacy. Refer to staff note for further information about this discharge.
--- NOTE | 2018-07-29 14:51 | PN ---
[facility] Progress Note Note: PT WAS DISCHARGED TODAY TO [facility] PER NURSE BRUCE. 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 ALERT O X 3. NAD.
== END 2018-07-29 14:30 | disposition home or self-care (01) | DRG 772 ==
LOC: YASAS 13:22 → Y5N 13:23
PROVIDERS: ADMIT Psychiatry & Neurology Psychiatry; ATTEND Psychiatry & Neurology Psychiatry
PROC: HZ42ZZZ Group Counseling for Substance Abuse Treatment, Cognitive-Behavioral (ICD-10-PCS; principal; 2018-07-24)
DX: F10.20 Alcohol dependence, uncomplicated (principal); F17.213 Nicotine dependence, cigarettes, with withdrawal; F10.24 Alcohol dependence with alcohol-induced mood disorder; G40.909 Epilepsy, unspecified, not intractable, without status epilepticus; L30.9 Dermatitis, unspecified; B36.9 Superficial mycosis, unspecified; M89.8X9 Other specified disorders of bone, unspecified site

== ENCOUNTER 2018-11-20 08:53 | Inpatient (IN) | payer OTHER ==
[2018-11-20 10:01] VITALS: BMI 24.5
--- NOTE | 2018-11-20 10:49 | HP ---
CIWA Score Nausea/Vomitin Muscle Tremors: 2 Anxiety: 3 Agitation: 3 Paroxysmal Sweats: 1-Minimal Palms Moist Orientation: 0-Oriented Tacttile Disturbances: 1-Very Mild Itch/Numbness Auditory Disturbances: 1-Very Mild Visual Disturbances: 0-None Headache: 2-Mild CIWA-Ar Total Score: 15 - Admission Criteria OASAS Guidelines: Admission for Medically Managed Detox: Requires at least one of the followin. CIWA greater than 12 2. Seizures within the past 24 hours 3. Delirium tremens within the past 24 hours 4. Hallucinations within the past 24 hours 5. Acute intervention needed for co occurring medical disorder 6. Acute intervention needed for co occurring psychiatric disorder 7. Severe withdrawal that cannot be handled at a lower level of care (continued vomiting, continued diarrhea, abnormal vital signs) requiring intravenous medication and/or fluids 8. Admission ROS S - HPI Chief Complaint: i need help to stop drinking alcohol Allergies/Adverse Reactions: Allergies Allergy/AdvReac Type Severity Reaction Status Date / Time No Known Allergies Allergy Verified 11/20/18 09:47 History of Present Illness: this 43 years old male with alcohol dependence ,seen in [facility] last night , refer for detox, has previous admissions before,last 08/26/18 to 08/30/[address] [facility] had seizure last11/19/18 no significant period of sobriety history of asthma history of depression history of fx of left leg ambulation with cane Exam Limitations: Language Barrier - Ebola screening Have you traveled outside of the country in the last 21 days: No Have you had contact with anyone from an Ebola affected area: No Do you have a fever: No - Review of Systems Constitutional: Loss of Appetite, Night Sweats, Changes in sleep, Weakness EENT: reports: Tearing, Nose Congestion Respiratory: reports: No Symptoms reported Cardiac: reports: No Symptoms Reported GI: reports: Nausea, Vomiting, Abdominal cramping : reports: No Symptoms Reported Musculoskeletal: reports: Back Pain, Muscle Pain, Other (history of fx of left leg) Integumentary: reports: Dryness Neuro: reports: Headache, Tremors Endocrine: reports: No Symptoms Reported Hematology: reports: No Symptoms Reported Psychiatric: reports: No Sypmtoms Reported, Judgement Intact, Mood/Affect Appropiate, Orientated x3, other (depression) Other Systems: Reviewed and Negative Patient History - Patient Medical History Hx Anemia: No Hx Asthma: Yes (on albuterolinhaler) Hx Chronic Obstructive Pulmonary Disease (COPD): No Hx Cancer: No Hx Cardiac Disorders: No Hx Congestive Heart Failure: No Hx Hypertension: No Hx Hypercholesterolemia: No Hx Pacemaker: No HX Cerebrovascular Accident: No Hx Seizures: Yes (with epilepsy) Hx Dementia: No Hx Diabetes: No Hx Gastrointestinal Disorders: No Hx Liver Disease: No Hx Genitourinary Disorders: No Hx Sexually Transmitted Disorders: No Hx Renal Disease (ESRD): No Hx Thyroid Disease: No Hx Human Immunodeficiency Virus (HIV): No Hx Hepatitis C: No Hx Depression: Yes (on med) Hx Suicide Attempt: No Hx Bipolar Disorder: No Hx Schizophrenia: No Other Medical History: no suicidal,,no homicidal - Patient Surgical History Past Surgical History: No Hx Neurologic Surgery: No Hx Cataract Extraction: No Hx Cardiac Surgery: No Hx Lung Surgery: No Hx Breast Surgery: No Hx Breast Biopsy: No Hx Abdominal Surgery: No Hx Appendectomy: No Hx Cholecystectomy: No Hx Genitourinary Surgery: No Hx Section: No Hx Orthopedic Surgery: No Anesthesia Reaction: No - PPD History Previous Implant?: Yes Documented Results: Negative w/proof Implanted On Prior R Admission?: Yes Date: 07/22/18 Results: 0 mm. PPD to be Administered?: No - Smoking Cessation Smoking history: Current every day smoker Have you smoked in the past 12 months: Yes Aproximately how many cigarettes per day: 15 Cigars Per Day: 0 Hx Chewing Tobacco Use: No Initiated information on smoking cessation: Yes 'Breaking Loose' booklet given: 11/20/18 - Substance & Tx. History Hx Alcohol Use: Yes Hx Substance Use: No Substance Use Type: Alcohol Hx Substance Use Treatment: Yes ([facility] 08/26/18 to 08/30/18) - Substances abused Alcohol Substance route: Oral Frequency: Daily Amount used: 3 pt. vodka Age of first use: 18 Date of last use: 11/19/18 Family Disease History - Family Disease History Family Disease History: Other: Father (cva ), Mother (leg promblems ) Admission Physical Exam [facility] - Vital Signs Vital Signs: Vital Signs - 24 hr 11/20/18 11/20/18 09:53 10:14 Temperature 97.9 F 97.9 F Pulse Rate 89 89 Respiratory 18 18 Rate Blood Pressure 109/79 109/79 - Physical General Appearance: Yes: Moderate Distress, Tremorous, Irritable, Sweating HEENTM: Yes: Normal ENT Inspection, HEATHER, Pharynx Normal Respiratory: Yes: Lungs Clear, Normal Breath Sounds, No Respiratory Distress Neck: Yes: Within Normal Limits, Supple, Trachea in good position Breast: Yes: Within Normal Limits Cardiology: Yes: Within Normal Limits, Regular Rhythm, Regular Rate, S1, S2 Abdominal: Yes: Within Normal Limits, Normal Bowel Sounds, Non Tender, Soft Genitourinary: Yes: Within Normal Limits Back: Yes: Muscle Spasm Musculoskeletal: Yes: Back pain, Muscle Pain Extremities: Yes: Tremors, Other (history of f xof left leg) 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 (2) Nicotine dependence Current Visit: No Status: Acute Qualifiers: Nicotine product type: cigarettes Substance use status: in withdrawal Qualified Code(s): F17.213 - Nicotine dependence, cigarettes, with withdrawal Comment: . (3) History of seizures Current Visit: No Status: Chronic (4) Asthma Current Visit: No Status: Chronic Qualifiers: Asthma severity: unspecified severity Asthma persistence: intermittent Asthma complication type: uncomplicated Qualified Code(s): J45.20 - Mild intermittent asthma, uncomplicated (5) Seizure Current Visit: No Status: Chronic (6) Syncope Current Visit: Yes Status: Acute (7) History of depression Current Visit: Yes Status: Acute Cleared for Admission S - Detox or Rehab [facility] Level of Care: Medically Managed Detox Regimen/Protocol: Librium Breathalyzer - Breathalyzer Breathalyzer: 0.017 Urine Drug Screen - Test Device Lot number: [id number] Expiration date: 06/20/20 - Control Is test valid?: Yes - Results Drug screen NEGATIVE: No Urine drug screen results: BZO-Benzodiazepines Inpatient Rehab Admission - Rehab Decision to Admit Inpatient rehab admission?: No
[2018-11-20] MEDS ORDERED: ACETAMINOPHEN 325 MG TABLET (FP) PO PRN (11:38)
[2018-11-20] MEDS ORDERED: MAGNESIUM CITRATE 300 ML BOTTLE PO PRN (11:38)
[2018-11-20] MEDS ORDERED: MAGNESIUM HYDROX 2400MG/30ML ORAL SUSPENSION 30 ML CUP PO PRN (11:38)
[2018-11-20] MEDS ORDERED: IBUPROFEN 400 MG TABLET (FP) PO PRN (11:38)
[2018-11-20] MEDS ORDERED: BISMUTH SUBSALICYLATE 262 MG/15 ML BTL PO PRN (11:38)
[2018-11-20] MEDS ORDERED: MAG HYDROX/AL HYDROX/SIMETH 30 ML UNIT-DOSE CUP PO PRN (11:38)
[2018-11-20] MEDS ORDERED: chlordiazePOXIDE HCL 25 MG CAPSULE PO PRN (11:38)
[2018-11-20] MEDS ORDERED: MENTHOL/PHENOL 1 EACH UD MM PRN (11:38)
[2018-11-20] MEDS ORDERED: NICOTINE POLACRILEX 2 MG GUM BUC PRN (11:38)
[2018-11-20] MEDS ORDERED: ALBUTEROL SO4 8 GM HFA INHALER IH PRN (11:42)
[2018-11-20] MEDS: NICOTINE 21 MG/24 HOURS TOPICAL PATCH TD SCH (12:44)
[2018-11-20] MEDS: chlordiazePOXIDE HCL 25 MG CAPSULE PO SCH ×2 (17:34→22:05)
[2018-11-20] MEDS: ACETAMINOPHEN 325 MG TABLET (FP) PO PRN (17:36)
[2018-11-20] MEDS: MELATONIN 5 MG TABLETS PO PRN (21:52)
[2018-11-20] MEDS: levETIRAcetam 500 MG TABLET (FP) PO SCH (21:52)
[2018-11-20] MEDS: THIAMINE HCL 100 MG TABLET (FP) PO SCH (21:52)
[2018-11-20] MEDS: hydrOXYzine PAMOATE 25 MG CAPSULE (FP) PO PRN (21:52)
[2018-11-20] MEDS: METHOCARBAMOL 500 MG TABLET PO PRN (21:52)
[2018-11-21] MEDS: chlordiazePOXIDE HCL 25 MG CAPSULE PO SCH ×4 (05:56→22:11)
[2018-11-21 10:10] LABS: HEMATOCRIT 47.1 % (35.4-49); HEMOGLOBIN 15.5 GM/dL (11.7-16.9); MCH 30.2 pg (25.7-33.7); MEAN CELL VOLUME 91.4 fl (80-96); MEAN PLT VOLUME 8.2 fl (7.5-11.1); PLATELET COUNT 371 K/MM3 (134-434); RBC 5.15 M/mm3 (4.00-5.60); RDW 15.8 % (11.9-15.9); WHITE BLOOD COUNT 7.8 K/mm3 (4.0-10.0)
[2018-11-21 10:19] LABS: ALK PHOS 72 U/L (45-117); ANION GAP 9 MMOL/L (8-16); BILIRUBIN,TOTAL 0.7 mg/dL (0.2-1); BLOOD UREA NITROGEN 9 mg/dL (7-18); CALCIUM 9.9 mg/dL (8.5-10.1); CHLORIDE 102 mmol/L (98-107); CO2 27 mmol/L (21-32); CREATININE 0.8 mg/dL (0.55-1.3); GLUCOSE,RANDOM 134 mg/dL (74-106); SGOT/AST 37 U/L (15-37); SGPT/ALT 46 U/L (13-61); SODIUM 137 mmol/L (136-145)
[2018-11-21] MEDS: levETIRAcetam 500 MG TABLET (FP) PO SCH ×2 (10:24→22:11)
[2018-11-21] MEDS: FLUoxetine HCL 20 MG CAPSULE (FP) PO SCH (10:24)
[2018-11-21] MEDS: NICOTINE 21 MG/24 HOURS TOPICAL PATCH TD SCH (10:24)
[2018-11-21] MEDS: PRENATAL VITAMINS W/ FOLIC ACID TABLET (FP) PO SCH (10:24)
[2018-11-21] MEDS: ACETAMINOPHEN 325 MG TABLET (FP) PO PRN (13:41)
[2018-11-21] MEDS ORDERED: ONDANSETRON *ODT* 4 MG TABLET SL PRN (13:55)
[2018-11-21] MEDS: LIDOCAINE 5% TOPICAL PATCH TP SCH (14:13)
--- NOTE | 2018-11-21 17:30 | PN ---
[facility] CIWA - CIWA Score Nausea/Vomitin Muscle Tremors: 2 Anxiety: 1-Mildly Anxious Agitation: 0-Normal Activity Paroxysmal Sweats: 3 Orientation: 0-Oriented Tacttile Disturbances: 1-Very Mild Itch/Numbness Auditory Disturbances: 0-None Visual Disturbances: 2-Mild Sensitivity Headache: 3-Moderate CIWA-Ar Total Score: 14 S Progress Note (SOAP) Subjective: NOTE: PATIENT REPORTS THAT HIS FIRST LANGUAGE IS INDIAN AND THAT HE SPEAKS VERY LITTLE WALLISIAN. THIS [facility] C.I[facility]. / S.O.A.P. NOTE INTERVIEW CONDUCTED WITH ASSISTANCE OF TANKAGE GRINDER 'DWAYNE' (I.D. #: [id number]) VIA [employer] PHONE. Sweating, Interrupted Sleep, Body Aches, Nausea, H/A, Stomach Cramping. Objective: PATIENT A & O X 3, OBSERVED AMBULATING ON UNIT UNASSISTED. IN NO ACUTE DISTRESS. 11/21/18 17:31 Vital Signs Temperature 99.0 F 11/21/18 14:23 Pulse Rate 94 H 11/21/18 14:23 Respiratory Rate 18 11/21/18 14:23 Blood Pressure 123/89 11/21/18 14:23 O2 Sat by Pulse Oximetry (%) Laboratory Tests 11/21/18 11/21/18 11/21/18 07:00 07:00 07:00 WBC 7.8 RBC 5.15 Hgb 15.5 Hct 47.1 D MCV 91.4 MCH 30.2 MCHC 33.0 RDW 15.8 Plt Count 371 D MPV 8.2 Sodium 137 Potassium 4.0 Chloride 102 Carbon Dioxide 27 Anion Gap 9 BUN 9 Creatinine 0.8 Creat Clearance w eGFR 105.51 Random Glucose 134 H Calcium 9.9 Total Bilirubin 0.7 AST 37 ALT 46 Alkaline Phosphatase 72 Total Protein 8.0 Albumin 4.0 RPR Titer Nonreactive LABS NOTED. Assessment: 11/21/18 17:34 WITHDRAWAL SYMPTOMS. Plan: CONTINUE DETOX. PRN ZOFRAN SL FOR NAUSEA. PRN ROBAXIN FOR BODY AHCES / MUSCLE SPASMS. LIDODERM PATCH FOR LOWER BACK PAIN.
[2018-11-21] MEDS: LIDOCAINE PATCH REMOVAL MC SCH (22:02)
[2018-11-21] MEDS: THIAMINE HCL 100 MG TABLET (FP) PO SCH (22:10)
[2018-11-21] MEDS: hydrOXYzine PAMOATE 25 MG CAPSULE (FP) PO PRN (22:10)
[2018-11-21] MEDS: MELATONIN 5 MG TABLETS PO PRN (22:10)
[2018-11-21] MEDS: METHOCARBAMOL 500 MG TABLET PO PRN (22:11)
[2018-11-22] MEDS: chlordiazePOXIDE HCL 25 MG CAPSULE PO SCH ×2 (05:05→10:25)
[2018-11-22] MEDS: ACETAMINOPHEN 325 MG TABLET (FP) PO PRN ×2 (06:07→22:04)
[2018-11-22] MEDS: FLUoxetine HCL 20 MG CAPSULE (FP) PO SCH (10:25)
[2018-11-22] MEDS: levETIRAcetam 500 MG TABLET (FP) PO SCH ×2 (10:25→22:03)
[2018-11-22] MEDS: PRENATAL VITAMINS W/ FOLIC ACID TABLET (FP) PO SCH (10:25)
[2018-11-22] MEDS: NICOTINE 21 MG/24 HOURS TOPICAL PATCH TD SCH (10:26)
[2018-11-22] MEDS: LIDOCAINE 5% TOPICAL PATCH TP SCH (10:26)
--- NOTE | 2018-11-22 14:02 | PN ---
[facility] CIWA - CIWA Score Nausea/Vomitin-No Nausea/No Vomiting Muscle Tremors: 3 Anxiety: 1-Mildly Anxious Agitation: 0-Normal Activity Paroxysmal Sweats: 3 Orientation: 0-Oriented Tacttile Disturbances: 1-Very Mild Itch/Numbness Auditory Disturbances: 0-None Visual Disturbances: 0-None Headache: 2-Mild CIWA-Ar Total Score: 10 [facility] Progress Note (SOAP) Subjective: c/o sweats, headache, and shakes. Objective: 11/22/18 14:03 Vital Signs 11/22/18 11/22/18 06:07 09:52 Temperature 97.2 F L 97.6 F Pulse Rate 66 81 Respiratory 18 18 Rate Blood Pressure 122/75 129/79 Vital signs noted. Assessment: 11/22/18 14:03 AOx3, no distress noted Full ROM, ambulating in the unit. withdrawal symptoms persists. Plan: Continue detox increase fluids continue to monitor for withdrawal signs.
[2018-11-22] MEDS ORDERED: chlordiazePOXIDE HCL 10 MG CAPSULE PO PRN (17:00)
[2018-11-22] MEDS: chlordiazePOXIDE HCL 10 MG CAPSULE PO SCH ×2 (18:03→22:04)
[2018-11-22] MEDS: THIAMINE HCL 100 MG TABLET (FP) PO SCH (22:03)
[2018-11-22] MEDS: LIDOCAINE PATCH REMOVAL MC SCH (22:41)
[2018-11-23] MEDS: chlordiazePOXIDE HCL 10 MG CAPSULE PO SCH ×3 (05:27→17:37)
[2018-11-23] MEDS: levETIRAcetam 500 MG TABLET (FP) PO SCH ×2 (10:16→22:25)
[2018-11-23] MEDS: FLUoxetine HCL 20 MG CAPSULE (FP) PO SCH (10:16)
[2018-11-23] MEDS: METHOCARBAMOL 500 MG TABLET PO PRN (10:18)
[2018-11-23] MEDS: PRENATAL VITAMINS W/ FOLIC ACID TABLET (FP) PO SCH (10:19)
[2018-11-23] MEDS: LIDOCAINE 5% TOPICAL PATCH TP SCH (12:02)
[2018-11-23] MEDS: NICOTINE 21 MG/24 HOURS TOPICAL PATCH TD SCH (12:03)
--- NOTE | 2018-11-23 17:04 | PN ---
S CIWA - CIWA Score Nausea/Vomitin-No Nausea/No Vomiting Muscle Tremors: 3 Anxiety: 1-Mildly Anxious Agitation: 0-Normal Activity Paroxysmal Sweats: 3 Orientation: 0-Oriented Tacttile Disturbances: 0-None Auditory Disturbances: 0-None Visual Disturbances: 0-None Headache: 0-None Present CIWA-Ar Total Score: 7 [facility] Progress Note (SOAP) Subjective: Tremor, sweating, interrupted sleep Objective: 11/23/18 17:02 Last Vital Signs Temp Pulse Resp BP Pulse Ox 97.7 F 75 18 108/73 11/23/18 14:13 11/23/18 14:13 11/23/18 14:13 11/23/18 14:13 Laboratory Tests 11/21/18 11/21/18 11/21/18 07:00 07:00 07:00 WBC 7.8 RBC 5.15 Hgb 15.5 Hct 47.1 D MCV 91.4 MCH 30.2 MCHC 33.0 RDW 15.8 Plt Count 371 D MPV 8.2 Sodium 137 Potassium 4.0 Chloride 102 Carbon Dioxide 27 Anion Gap 9 BUN 9 Creatinine 0.8 Creat Clearance w eGFR 105.51 Random Glucose 134 H Calcium 9.9 Total Bilirubin 0.7 AST 37 ALT 46 Alkaline Phosphatase 72 Total Protein 8.0 Albumin 4.0 RPR Titer Nonreactive Labs reviewed: glucose 134 Assessment: 11/23/18 17:03 Withdrawal symptoms Noted with hyperglycemia Plan: Continue detox Encouraged PO water hydration Hyperglycemia: might be r/t withdrawal; will repeat fasting glucose in AM, send HbA1c
[2018-11-23] MEDS: THIAMINE HCL 100 MG TABLET (FP) PO SCH (22:25)
[2018-11-23] MEDS: LIDOCAINE PATCH REMOVAL MC SCH (22:25)
[2018-11-24] MEDS: chlordiazePOXIDE HCL 10 MG CAPSULE PO SCH (05:21)
[2018-11-24 06:35] VITALS: BP 122/80; PULSE 62; TEMP 97.7
--- NOTE | 2018-11-24 09:10 | DS ---
[facility] Detox Discharge Summary Admission Date: 11/20/18 Discharge Date: 11/24/18 - History Present History: Alcohol Dependence - Physical Exam Results Vital Signs: Vital Signs Temperature 97.7 F 11/24/18 06:34 Pulse Rate 62 11/24/18 06:34 Respiratory Rate 16 11/24/18 06:34 Blood Pressure 122/80 11/24/18 06:34 O2 Sat by Pulse Oximetry (%) - Treatment Hospital Course: Detox Protocol Followed, Detoxed Safely, Responded well, Discharged Condition Good, Rehab Referral Accepted - Medication Discharge Medications: Ambulatory Orders Fluoxetine HCl [Prozac -] 20 mg PO DAILY #30 capsule 08/27/18 hydrOXYzine PAMOATE [Vistaril -] 50 mg PO Q4H #90 capsule 08/27/18 Albuterol Sulfate Inhaler - [Ventolin HFA Inhaler -] 2 inh PO Q4H PRN #1 inhaler 08/30/18 levETIRAcetam [Keppra -] 1,000 mg PO BID #60 tablet 08/30/18 - Diagnosis (1) History of depression Current Visit: Yes Status: Acute (2) Alcohol dependence with uncomplicated withdrawal Current Visit: Yes Status: Chronic (3) Alcohol-induced anxiety disorder Current Visit: No Status: Acute (4) Nicotine dependence Current Visit: Yes Status: Acute Qualifiers: Nicotine product type: cigarettes Substance use status: uncomplicated Qualified Code(s): F17.210 - Nicotine dependence, cigarettes, uncomplicated (5) Asthma Current Visit: Yes Status: Chronic Qualifiers: Asthma severity: unspecified severity Asthma persistence: intermittent Asthma complication type: uncomplicated Qualified Code(s): J45.20 - Mild intermittent asthma, uncomplicated (6) Seizure disorder Current Visit: No Status: Chronic - AMA Did Patient Leave Against Medical Advice: No (referred to [facility])
[2018-11-24] MEDS: levETIRAcetam 500 MG TABLET (FP) PO SCH (09:19)
[2018-11-24] MEDS: PRENATAL VITAMINS W/ FOLIC ACID TABLET (FP) PO SCH (09:19)
== END 2018-11-24 09:35 | disposition home or self-care (01) | DRG 775 ==
LOC: YASAS 08:53 → Y6N 11:15
PROVIDERS: ADMIT Surgery; ATTEND Surgery
PROC: HZ2ZZZZ Detoxification Services for Substance Abuse Treatment (ICD-10-PCS; principal; 2018-11-20)
DX: F10.230 Alcohol dependence with withdrawal, uncomplicated (principal); F17.210 Nicotine dependence, cigarettes, uncomplicated; F10.280 Alcohol dependence with alcohol-induced anxiety disorder; F32.9 Major depressive disorder, single episode, unspecified; R55 Syncope and collapse; G40.909 Epilepsy, unspecified, not intractable, without status epilepticus; J45.909 Unspecified asthma, uncomplicated; R73.9 Hyperglycemia, unspecified; M54.5 Low back pain; R26.89 Other abnormalities of gait and mobility; Z99.89 Dependence on other enabling machines and devices
CPT/HCPCS: 36415; 80053; 85027; 86593

== ENCOUNTER 2020-06-30 15:53 | Inpatient (IN) | payer OTHER ==
[2020-06-30] MEDS ORDERED: P-EPHED 60MG/TRIPROLIDI 2.5MG TABLET PO PRN (21:39)
[2020-06-30] MEDS ORDERED: guaiFENesin 200 MG/10 ML 10 ML UNIT-DOSE CUPS PO PRN (21:39)
[2020-06-30] MEDS ORDERED: MAG HYDROX/AL HYDROX/SIMETH 30 ML UNIT-DOSE CUP PO PRN (21:39)
[2020-06-30] MEDS ORDERED: LOPERAMIDE HCL 2 MG CAPSULE PO PRN (21:39)
[2020-06-30] MEDS ORDERED: NICOTINE POLACRILEX 2 MG GUM BC PRN (21:39)
[2020-06-30] MEDS ORDERED: MAGNESIUM CITRATE 300 ML BOTTLE PO PRN (21:39)
[2020-06-30] MEDS ORDERED: MAGNESIUM HYDROX 2400MG/30ML ORAL SUSPENSION 30 ML CUP PO PRN (21:39)
[2020-06-30] MEDS ORDERED: ALBUTEROL SO4 HFA INHALER IH PRN (22:05)
[2020-06-30 22:06] VITALS: BMI 21.6
[2020-07-01] MEDS: THIAMINE HCL 100 MG TABLET (FP) PO SCH ×2 (00:54→21:11)
[2020-07-01] MEDS: MELATONIN 5 MG TABLETS PO SCH ×2 (00:54→21:11)
[2020-07-01] MEDS: hydrOXYzine PAMOATE 25 MG CAPSULE (FP) PO SCH ×5 (00:57→23:41)
[2020-07-01] MEDS: levETIRAcetam 500 MG TABLET (FP) PO SCH ×3 (06:32→21:13)
[2020-07-01] MEDS ORDERED: TUBERCULIN PPD 5 TU/0.1ML VIAL ID ONE (07:09)
[2020-07-01] MEDS: PRENATAL VITAMINS W/ FOLIC ACID TABLET (FP) PO SCH (09:39)
[2020-07-01] MEDS: TOLNAFTATE 1% CREAM 15 GM TUBE TP SCH ×2 (09:39→21:13)
[2020-07-01] MEDS: NICOTINE 14 MG/24 HOURS TOPICAL PATCH TD SCH (09:39)
[2020-07-01 14:44] LABS: POTASSIUM 3.4 mmol/L (3.5-5.1)
[2020-07-01 14:45] LABS: HEMATOCRIT 38.6 % (35.4-49); HEMOGLOBIN 12.3 GM/dL (11.7-16.9); MCH 30.8 pg (25.7-33.7); MEAN CELL VOLUME 96.2 fl (80-96); MEAN PLT VOLUME 8.6 fl (7.5-11.1); PLATELET COUNT 243 K/MM3 (134-434); RBC 4.01 M/mm3 (4.00-5.60); RDW 16.8 % (11.9-15.9); WHITE BLOOD COUNT 4.6 K/mm3 (4.0-10.0)
[2020-07-01 14:47] LABS: CALCIUM 9.2 mg/dL (8.5-10.1)
[2020-07-01 14:48] LABS: ALBUMIN 3.8 g/dl (3.4-5.0)
[2020-07-01 14:52] LABS: BILIRUBIN,TOTAL 1.1 mg/dL (0.2-1); TOT PROT 6.7 g/dl (6.4-8.2)
[2020-07-01 15:20] LABS: SICKLE CELL SCREEN NEGATIVE (NEGATIVE)
[2020-07-02] MEDS: hydrOXYzine PAMOATE 25 MG CAPSULE (FP) PO SCH ×4 (06:18→23:51)
[2020-07-02] MEDS: levETIRAcetam 500 MG TABLET (FP) PO SCH ×3 (06:50→21:19)
[2020-07-02] MEDS ORDERED: PT OWN MED DRAWER 7, Y5N ONE (08:23)
[2020-07-02] MEDS: FLUoxetine HCL 10 MG CAPSULE PO SCH (09:41)
[2020-07-02] MEDS: TOLNAFTATE 1% CREAM 15 GM TUBE TP SCH ×2 (09:41→21:19)
[2020-07-02] MEDS: PRENATAL VITAMINS W/ FOLIC ACID TABLET (FP) PO SCH (09:41)
[2020-07-02] MEDS: NICOTINE 14 MG/24 HOURS TOPICAL PATCH TD SCH (09:41)
[2020-07-02] MEDS: THIAMINE HCL 100 MG TABLET (FP) PO SCH (21:19)
[2020-07-02] MEDS: MELATONIN 5 MG TABLETS PO SCH (21:19)
[2020-07-03] MEDS: hydrOXYzine PAMOATE 25 MG CAPSULE (FP) PO SCH ×4 (06:28→23:33)
[2020-07-03] MEDS: levETIRAcetam 500 MG TABLET (FP) PO SCH ×3 (06:28→21:11)
[2020-07-03] MEDS: NICOTINE 14 MG/24 HOURS TOPICAL PATCH TD SCH (09:32)
[2020-07-03] MEDS: PRENATAL VITAMINS W/ FOLIC ACID TABLET (FP) PO SCH (09:32)
[2020-07-03] MEDS: TOLNAFTATE 1% CREAM 15 GM TUBE TP SCH ×2 (09:33→21:11)
[2020-07-03] MEDS: FLUoxetine HCL 10 MG CAPSULE PO SCH (09:33)
[2020-07-03] MEDS: MELATONIN 5 MG TABLETS PO SCH (21:11)
[2020-07-03] MEDS: THIAMINE HCL 100 MG TABLET (FP) PO SCH (21:11)
[2020-07-04] MEDS: hydrOXYzine PAMOATE 25 MG CAPSULE (FP) PO SCH ×4 (06:06→23:44)
[2020-07-04] MEDS: levETIRAcetam 500 MG TABLET (FP) PO SCH ×3 (06:06→21:08)
[2020-07-04] MEDS: TOLNAFTATE 1% CREAM 15 GM TUBE TP SCH ×2 (09:50→21:08)
[2020-07-04] MEDS: NICOTINE 14 MG/24 HOURS TOPICAL PATCH TD SCH (09:50)
[2020-07-04] MEDS: PRENATAL VITAMINS W/ FOLIC ACID TABLET (FP) PO SCH (09:50)
[2020-07-04] MEDS: FLUoxetine HCL 10 MG CAPSULE PO SCH (09:50)
[2020-07-04] MEDS: IBUPROFEN 400 MG TABLET (FP) PO PRN (14:27)
[2020-07-04] MEDS: MELATONIN 5 MG TABLETS PO SCH (21:08)
[2020-07-04] MEDS: THIAMINE HCL 100 MG TABLET (FP) PO SCH (21:08)
[2020-07-05] MEDS: levETIRAcetam 500 MG TABLET (FP) PO SCH ×3 (06:02→21:11)
[2020-07-05] MEDS: hydrOXYzine PAMOATE 25 MG CAPSULE (FP) PO SCH ×3 (06:02→17:56)
[2020-07-05] MEDS: PRENATAL VITAMINS W/ FOLIC ACID TABLET (FP) PO SCH (10:03)
[2020-07-05] MEDS: NICOTINE 14 MG/24 HOURS TOPICAL PATCH TD SCH (10:03)
[2020-07-05] MEDS: FLUoxetine HCL 10 MG CAPSULE PO SCH (10:03)
[2020-07-05] MEDS: IBUPROFEN 400 MG TABLET (FP) PO PRN (10:04)
[2020-07-05] MEDS: TOLNAFTATE 1% CREAM 15 GM TUBE TP SCH ×2 (11:12→21:11)
[2020-07-05] MEDS: ACETAMINOPHEN 325 MG TABLET (FP) PO PRN (13:47)
[2020-07-05] MEDS: THIAMINE HCL 100 MG TABLET (FP) PO SCH (21:10)
[2020-07-05] MEDS: MELATONIN 5 MG TABLETS PO SCH (21:11)
[2020-07-06] MEDS: hydrOXYzine PAMOATE 25 MG CAPSULE (FP) PO SCH ×5 (00:02→23:07)
[2020-07-06] MEDS: levETIRAcetam 500 MG TABLET (FP) PO SCH ×3 (06:04→21:04)
[2020-07-06] MEDS: IBUPROFEN 400 MG TABLET (FP) PO PRN (06:53)
[2020-07-06] MEDS: NICOTINE 14 MG/24 HOURS TOPICAL PATCH TD SCH (10:06)
[2020-07-06] MEDS: PRENATAL VITAMINS W/ FOLIC ACID TABLET (FP) PO SCH (10:07)
[2020-07-06] MEDS: FLUoxetine HCL 10 MG CAPSULE PO SCH (10:07)
[2020-07-06] MEDS: ACETAMINOPHEN 325 MG TABLET (FP) PO PRN (10:08)
[2020-07-06] MEDS: TOLNAFTATE 1% CREAM 15 GM TUBE TP SCH ×2 (10:10→21:04)
[2020-07-06] MEDS: MELATONIN 5 MG TABLETS PO SCH (21:04)
[2020-07-06] MEDS: THIAMINE HCL 100 MG TABLET (FP) PO SCH (21:04)
[2020-07-07] MEDS: levETIRAcetam 500 MG TABLET (FP) PO SCH ×3 (06:05→21:45)
[2020-07-07] MEDS: hydrOXYzine PAMOATE 25 MG CAPSULE (FP) PO SCH ×4 (06:05→23:49)
[2020-07-07] MEDS: FLUoxetine HCL 10 MG CAPSULE PO SCH (09:18)
[2020-07-07] MEDS: PRENATAL VITAMINS W/ FOLIC ACID TABLET (FP) PO SCH (09:18)
[2020-07-07] MEDS: IBUPROFEN 400 MG TABLET (FP) PO PRN ×2 (09:18→21:45)
[2020-07-07] MEDS: TOLNAFTATE 1% CREAM 15 GM TUBE TP SCH ×2 (09:19→21:46)
[2020-07-07] MEDS: NICOTINE 14 MG/24 HOURS TOPICAL PATCH TD SCH (09:19)
[2020-07-07] MEDS: ACETAMINOPHEN 325 MG TABLET (FP) PO PRN (14:19)
[2020-07-07] MEDS: THIAMINE HCL 100 MG TABLET (FP) PO SCH (21:45)
[2020-07-07] MEDS: MELATONIN 5 MG TABLETS PO SCH (21:45)
[2020-07-08] MEDS: hydrOXYzine PAMOATE 25 MG CAPSULE (FP) PO SCH ×4 (06:09→23:29)
[2020-07-08] MEDS: levETIRAcetam 500 MG TABLET (FP) PO SCH ×3 (06:09→21:01)
[2020-07-08] MEDS: IBUPROFEN 400 MG TABLET (FP) PO PRN (06:10)
[2020-07-08] MEDS: PRENATAL VITAMINS W/ FOLIC ACID TABLET (FP) PO SCH (09:50)
[2020-07-08] MEDS: FLUoxetine HCL 10 MG CAPSULE PO SCH (09:50)
[2020-07-08] MEDS: TOLNAFTATE 1% CREAM 15 GM TUBE TP SCH ×3 (09:50→21:02)
[2020-07-08] MEDS: NICOTINE 14 MG/24 HOURS TOPICAL PATCH TD SCH (09:50)
[2020-07-08] MEDS: ACETAMINOPHEN 325 MG TABLET (FP) PO PRN (09:51)
[2020-07-08] MEDS ORDERED: BENZOCAINE 20 % GEL TUBE MM PRN (11:07)
[2020-07-08] MEDS: IBUPROFEN 600 MG TABLET (FP) PO PRN ×2 (12:56→19:00)
[2020-07-08] MEDS: MELATONIN 5 MG TABLETS PO SCH (21:01)
[2020-07-08] MEDS: THIAMINE HCL 100 MG TABLET (FP) PO SCH (21:01)
[2020-07-09] MEDS: IBUPROFEN 600 MG TABLET (FP) PO PRN (01:09)
[2020-07-09] MEDS: hydrOXYzine PAMOATE 25 MG CAPSULE (FP) PO SCH ×4 (06:43→19:03)
[2020-07-09] MEDS: levETIRAcetam 500 MG TABLET (FP) PO SCH ×3 (06:43→21:56)
[2020-07-09] MEDS: FLUoxetine HCL 10 MG CAPSULE PO SCH (09:50)
[2020-07-09] MEDS: TOLNAFTATE 1% CREAM 15 GM TUBE TP SCH ×2 (09:50→21:56)
[2020-07-09] MEDS: NICOTINE 14 MG/24 HOURS TOPICAL PATCH TD SCH (09:50)
[2020-07-09] MEDS: PRENATAL VITAMINS W/ FOLIC ACID TABLET (FP) PO SCH (09:50)
[2020-07-09] MEDS: MELATONIN 5 MG TABLETS PO SCH (21:56)
[2020-07-09] MEDS: THIAMINE HCL 100 MG TABLET (FP) PO SCH (21:56)
[2020-07-10] MEDS: hydrOXYzine PAMOATE 25 MG CAPSULE (FP) PO SCH ×3 (06:36→19:13)
[2020-07-10] MEDS: levETIRAcetam 500 MG TABLET (FP) PO SCH ×3 (06:36→21:08)
[2020-07-10] MEDS: PRENATAL VITAMINS W/ FOLIC ACID TABLET (FP) PO SCH (09:56)
[2020-07-10] MEDS: TOLNAFTATE 1% CREAM 15 GM TUBE TP SCH ×2 (09:56→21:09)
[2020-07-10] MEDS: FLUoxetine HCL 10 MG CAPSULE PO SCH (09:56)
[2020-07-10] MEDS: NICOTINE 14 MG/24 HOURS TOPICAL PATCH TD SCH (09:56)
[2020-07-10] MEDS: THIAMINE HCL 100 MG TABLET (FP) PO SCH (21:08)
[2020-07-10] MEDS: MELATONIN 5 MG TABLETS PO SCH (21:08)
[2020-07-11] MEDS: hydrOXYzine PAMOATE 25 MG CAPSULE (FP) PO SCH ×5 (01:25→23:39)
[2020-07-11] MEDS: levETIRAcetam 500 MG TABLET (FP) PO SCH ×3 (06:21→21:22)
[2020-07-11] MEDS: FLUoxetine HCL 10 MG CAPSULE PO SCH (09:45)
[2020-07-11] MEDS: PRENATAL VITAMINS W/ FOLIC ACID TABLET (FP) PO SCH (09:45)
[2020-07-11] MEDS: NICOTINE 14 MG/24 HOURS TOPICAL PATCH TD SCH (09:46)
[2020-07-11] MEDS: TOLNAFTATE 1% CREAM 15 GM TUBE TP SCH ×2 (10:00→21:23)
[2020-07-11] MEDS: MELATONIN 5 MG TABLETS PO SCH (21:22)
[2020-07-11] MEDS: THIAMINE HCL 100 MG TABLET (FP) PO SCH (21:22)
[2020-07-12] MEDS: hydrOXYzine PAMOATE 25 MG CAPSULE (FP) PO SCH ×3 (06:11→17:36)
[2020-07-12] MEDS: levETIRAcetam 500 MG TABLET (FP) PO SCH ×3 (06:11→21:11)
[2020-07-12] MEDS: NICOTINE 14 MG/24 HOURS TOPICAL PATCH TD SCH (09:35)
[2020-07-12] MEDS: PRENATAL VITAMINS W/ FOLIC ACID TABLET (FP) PO SCH (09:35)
[2020-07-12] MEDS: FLUoxetine HCL 10 MG CAPSULE PO SCH (09:35)
[2020-07-12] MEDS: TOLNAFTATE 1% CREAM 15 GM TUBE TP SCH ×2 (09:35→21:11)
[2020-07-12] MEDS: THIAMINE HCL 100 MG TABLET (FP) PO SCH (21:10)
[2020-07-12] MEDS: MELATONIN 5 MG TABLETS PO SCH (21:10)
[2020-07-13] MEDS: hydrOXYzine PAMOATE 25 MG CAPSULE (FP) PO SCH ×4 (00:54→17:55)
[2020-07-13] MEDS: levETIRAcetam 500 MG TABLET (FP) PO SCH ×3 (06:06→21:33)
[2020-07-13] MEDS: FLUoxetine HCL 10 MG CAPSULE PO SCH (09:43)
[2020-07-13] MEDS: NICOTINE 14 MG/24 HOURS TOPICAL PATCH TD SCH (09:43)
[2020-07-13] MEDS: PRENATAL VITAMINS W/ FOLIC ACID TABLET (FP) PO SCH (09:43)
[2020-07-13] MEDS: TOLNAFTATE 1% CREAM 15 GM TUBE TP SCH ×2 (10:03→21:35)
[2020-07-13] MEDS: MELATONIN 5 MG TABLETS PO SCH (21:35)
[2020-07-13] MEDS: THIAMINE HCL 100 MG TABLET (FP) PO SCH (21:35)
[2020-07-14] MEDS: hydrOXYzine PAMOATE 25 MG CAPSULE (FP) PO SCH ×5 (01:56→23:53)
[2020-07-14] MEDS: levETIRAcetam 500 MG TABLET (FP) PO SCH ×3 (06:07→21:50)
[2020-07-14] MEDS: PRENATAL VITAMINS W/ FOLIC ACID TABLET (FP) PO SCH (09:45)
[2020-07-14] MEDS: FLUoxetine HCL 10 MG CAPSULE PO SCH (09:45)
[2020-07-14] MEDS: NICOTINE 14 MG/24 HOURS TOPICAL PATCH TD SCH (09:46)
[2020-07-14] MEDS: TOLNAFTATE 1% CREAM 15 GM TUBE TP SCH ×2 (09:46→21:51)
[2020-07-14] MEDS: MELATONIN 5 MG TABLETS PO SCH (21:50)
[2020-07-14] MEDS: THIAMINE HCL 100 MG TABLET (FP) PO SCH (21:50)
[2020-07-15] MEDS: levETIRAcetam 500 MG TABLET (FP) PO SCH ×3 (06:00→21:05)
[2020-07-15] MEDS: hydrOXYzine PAMOATE 25 MG CAPSULE (FP) PO SCH ×4 (06:00→23:35)
[2020-07-15] MEDS: FLUoxetine HCL 10 MG CAPSULE PO SCH (10:06)
[2020-07-15] MEDS: NICOTINE 14 MG/24 HOURS TOPICAL PATCH TD SCH (10:06)
[2020-07-15] MEDS: TOLNAFTATE 1% CREAM 15 GM TUBE TP SCH ×2 (10:07→21:05)
[2020-07-15] MEDS: PRENATAL VITAMINS W/ FOLIC ACID TABLET (FP) PO SCH (10:07)
[2020-07-15] MEDS: THIAMINE HCL 100 MG TABLET (FP) PO SCH (21:05)
[2020-07-15] MEDS: MELATONIN 5 MG TABLETS PO SCH (21:05)
[2020-07-16] MEDS: levETIRAcetam 500 MG TABLET (FP) PO SCH ×3 (06:40→21:41)
[2020-07-16] MEDS: hydrOXYzine PAMOATE 25 MG CAPSULE (FP) PO SCH ×3 (06:40→17:59)
[2020-07-16] MEDS: NICOTINE 14 MG/24 HOURS TOPICAL PATCH TD SCH (10:47)
[2020-07-16] MEDS: PRENATAL VITAMINS W/ FOLIC ACID TABLET (FP) PO SCH (10:47)
[2020-07-16] MEDS: FLUoxetine HCL 10 MG CAPSULE PO SCH (10:47)
[2020-07-16] MEDS: TOLNAFTATE 1% CREAM 15 GM TUBE TP SCH ×2 (11:00→21:41)
[2020-07-16] MEDS: THIAMINE HCL 100 MG TABLET (FP) PO SCH (21:40)
[2020-07-16] MEDS: MELATONIN 5 MG TABLETS PO SCH (21:40)
[2020-07-17] MEDS: hydrOXYzine PAMOATE 25 MG CAPSULE (FP) PO SCH ×5 (00:04→23:42)
[2020-07-17] MEDS: levETIRAcetam 500 MG TABLET (FP) PO SCH ×3 (06:13→21:09)
[2020-07-17] MEDS: FLUoxetine HCL 10 MG CAPSULE PO SCH (09:48)
[2020-07-17] MEDS: PRENATAL VITAMINS W/ FOLIC ACID TABLET (FP) PO SCH (09:48)
[2020-07-17] MEDS: TOLNAFTATE 1% CREAM 15 GM TUBE TP SCH ×2 (09:48→21:09)
[2020-07-17] MEDS: NICOTINE 14 MG/24 HOURS TOPICAL PATCH TD SCH (09:48)
[2020-07-17] MEDS: MELATONIN 5 MG TABLETS PO SCH (21:09)
[2020-07-17] MEDS: THIAMINE HCL 100 MG TABLET (FP) PO SCH (21:09)
[2020-07-18] MEDS: levETIRAcetam 500 MG TABLET (FP) PO SCH ×3 (06:32→21:28)
[2020-07-18] MEDS: hydrOXYzine PAMOATE 25 MG CAPSULE (FP) PO SCH ×4 (06:32→23:43)
[2020-07-18] MEDS: NICOTINE 14 MG/24 HOURS TOPICAL PATCH TD SCH (10:32)
[2020-07-18] MEDS: PRENATAL VITAMINS W/ FOLIC ACID TABLET (FP) PO SCH (10:32)
[2020-07-18] MEDS: FLUoxetine HCL 10 MG CAPSULE PO SCH (10:32)
[2020-07-18] MEDS: TOLNAFTATE 1% CREAM 15 GM TUBE TP SCH ×2 (10:33→21:30)
[2020-07-18] MEDS: THIAMINE HCL 100 MG TABLET (FP) PO SCH (21:28)
[2020-07-18] MEDS: MELATONIN 5 MG TABLETS PO SCH (21:28)
[2020-07-19] MEDS: levETIRAcetam 500 MG TABLET (FP) PO SCH ×3 (06:00→21:08)
[2020-07-19] MEDS: hydrOXYzine PAMOATE 25 MG CAPSULE (FP) PO SCH ×4 (06:00→23:43)
[2020-07-19] MEDS: NICOTINE 14 MG/24 HOURS TOPICAL PATCH TD SCH (09:31)
[2020-07-19] MEDS: FLUoxetine HCL 10 MG CAPSULE PO SCH (09:31)
[2020-07-19] MEDS: TOLNAFTATE 1% CREAM 15 GM TUBE TP SCH ×2 (09:31→21:08)
[2020-07-19] MEDS: PRENATAL VITAMINS W/ FOLIC ACID TABLET (FP) PO SCH (09:31)
[2020-07-19] MEDS: THIAMINE HCL 100 MG TABLET (FP) PO SCH (21:07)
[2020-07-19] MEDS: MELATONIN 5 MG TABLETS PO SCH (21:07)
[2020-07-20] MEDS: levETIRAcetam 500 MG TABLET (FP) PO SCH ×3 (06:09→21:26)
[2020-07-20] MEDS: hydrOXYzine PAMOATE 25 MG CAPSULE (FP) PO SCH ×4 (06:09→23:59)
[2020-07-20] MEDS: PRENATAL VITAMINS W/ FOLIC ACID TABLET (FP) PO SCH (09:55)
[2020-07-20] MEDS: FLUoxetine HCL 10 MG CAPSULE PO SCH (09:55)
[2020-07-20] MEDS: TOLNAFTATE 1% CREAM 15 GM TUBE TP SCH ×2 (09:56→21:27)
[2020-07-20] MEDS: NICOTINE 14 MG/24 HOURS TOPICAL PATCH TD SCH (09:56)
[2020-07-20] MEDS: MELATONIN 5 MG TABLETS PO SCH (21:26)
[2020-07-20] MEDS: THIAMINE HCL 100 MG TABLET (FP) PO SCH (21:26)
[2020-07-21] MEDS: levETIRAcetam 500 MG TABLET (FP) PO SCH ×3 (06:41→21:03)
[2020-07-21] MEDS: hydrOXYzine PAMOATE 25 MG CAPSULE (FP) PO SCH ×4 (06:42→23:51)
[2020-07-21] MEDS: PRENATAL VITAMINS W/ FOLIC ACID TABLET (FP) PO SCH (09:56)
[2020-07-21] MEDS: TOLNAFTATE 1% CREAM 15 GM TUBE TP SCH ×2 (09:56→21:04)
[2020-07-21] MEDS: NICOTINE 14 MG/24 HOURS TOPICAL PATCH TD SCH (09:56)
[2020-07-21] MEDS: FLUoxetine HCL 10 MG CAPSULE PO SCH (09:56)
[2020-07-21] MEDS: MELATONIN 5 MG TABLETS PO SCH (21:03)
[2020-07-21] MEDS: THIAMINE HCL 100 MG TABLET (FP) PO SCH (21:03)
[2020-07-22] MEDS: hydrOXYzine PAMOATE 25 MG CAPSULE (FP) PO SCH ×4 (06:10→23:55)
[2020-07-22] MEDS: levETIRAcetam 500 MG TABLET (FP) PO SCH ×3 (06:10→21:53)
[2020-07-22] MEDS: FLUoxetine HCL 10 MG CAPSULE PO SCH (10:04)
[2020-07-22] MEDS: PRENATAL VITAMINS W/ FOLIC ACID TABLET (FP) PO SCH (10:04)
[2020-07-22] MEDS: NICOTINE 14 MG/24 HOURS TOPICAL PATCH TD SCH (10:05)
[2020-07-22] MEDS: TOLNAFTATE 1% CREAM 15 GM TUBE TP SCH ×2 (10:05→21:53)
[2020-07-22] MEDS: MELATONIN 5 MG TABLETS PO SCH (21:53)
[2020-07-22] MEDS: THIAMINE HCL 100 MG TABLET (FP) PO SCH (21:53)
[2020-07-23] MEDS: levETIRAcetam 500 MG TABLET (FP) PO SCH ×3 (06:12→21:06)
[2020-07-23] MEDS: hydrOXYzine PAMOATE 25 MG CAPSULE (FP) PO SCH ×4 (06:12→21:55)
[2020-07-23] MEDS: NICOTINE 14 MG/24 HOURS TOPICAL PATCH TD SCH (10:30)
[2020-07-23] MEDS: PRENATAL VITAMINS W/ FOLIC ACID TABLET (FP) PO SCH (10:30)
[2020-07-23] MEDS: FLUoxetine HCL 10 MG CAPSULE PO SCH (10:30)
[2020-07-23] MEDS: TOLNAFTATE 1% CREAM 15 GM TUBE TP SCH ×2 (10:31→21:06)
[2020-07-23] MEDS: MELATONIN 5 MG TABLETS PO SCH (21:06)
[2020-07-23] MEDS: THIAMINE HCL 100 MG TABLET (FP) PO SCH (21:06)
[2020-07-24] MEDS: levETIRAcetam 500 MG TABLET (FP) PO SCH ×3 (06:24→21:39)
[2020-07-24] MEDS: hydrOXYzine PAMOATE 25 MG CAPSULE (FP) PO SCH ×4 (06:24→23:30)
[2020-07-24] MEDS: PRENATAL VITAMINS W/ FOLIC ACID TABLET (FP) PO SCH (10:02)
[2020-07-24] MEDS: FLUoxetine HCL 10 MG CAPSULE PO SCH (10:02)
[2020-07-24] MEDS: NICOTINE 14 MG/24 HOURS TOPICAL PATCH TD SCH (10:03)
[2020-07-24] MEDS: TOLNAFTATE 1% CREAM 15 GM TUBE TP SCH ×2 (10:03→21:40)
[2020-07-24] MEDS: THIAMINE HCL 100 MG TABLET (FP) PO SCH (21:40)
[2020-07-24] MEDS: MELATONIN 5 MG TABLETS PO SCH (21:40)
[2020-07-25] MEDS: hydrOXYzine PAMOATE 25 MG CAPSULE (FP) PO SCH ×4 (06:18→23:59)
[2020-07-25] MEDS: levETIRAcetam 500 MG TABLET (FP) PO SCH ×3 (06:18→21:06)
[2020-07-25] MEDS: FLUoxetine HCL 10 MG CAPSULE PO SCH (10:03)
[2020-07-25] MEDS: PRENATAL VITAMINS W/ FOLIC ACID TABLET (FP) PO SCH (10:03)
[2020-07-25] MEDS: NICOTINE 14 MG/24 HOURS TOPICAL PATCH TD SCH (10:05)
[2020-07-25] MEDS: TOLNAFTATE 1% CREAM 15 GM TUBE TP SCH ×2 (10:07→21:06)
[2020-07-25] MEDS: MELATONIN 5 MG TABLETS PO SCH (21:05)
[2020-07-25] MEDS: THIAMINE HCL 100 MG TABLET (FP) PO SCH (21:05)
[2020-07-26] MEDS: hydrOXYzine PAMOATE 25 MG CAPSULE (FP) PO SCH (05:58)
[2020-07-26] MEDS: levETIRAcetam 500 MG TABLET (FP) PO SCH (05:58)
[2020-07-26 06:45] VITALS: BP 115/77; PULSE 87; TEMP 97.3
[2020-07-26] MEDS: NICOTINE 14 MG/24 HOURS TOPICAL PATCH TD SCH (09:42)
[2020-07-26] MEDS: FLUoxetine HCL 10 MG CAPSULE PO SCH (09:42)
[2020-07-26] MEDS: PRENATAL VITAMINS W/ FOLIC ACID TABLET (FP) PO SCH (09:43)
[2020-07-26] MEDS: TOLNAFTATE 1% CREAM 15 GM TUBE TP SCH (09:43)
== END 2020-07-26 09:43 | disposition home or self-care (01) | DRG 772 ==
LOC: YASAS 15:53 → Y3W 20:58
PROVIDERS: ADMIT Allergy & Immunology; ATTEND Allergy & Immunology
PROC: HZ42ZZZ Group Counseling for Substance Abuse Treatment, Cognitive-Behavioral (ICD-10-PCS; principal; 2020-06-30)
DX: F10.20 Alcohol dependence, uncomplicated (principal); F10.24 Alcohol dependence with alcohol-induced mood disorder; F17.210 Nicotine dependence, cigarettes, uncomplicated; F41.9 Anxiety disorder, unspecified; F32.9 Major depressive disorder, single episode, unspecified; G40.909 Epilepsy, unspecified, not intractable, without status epilepticus; J45.909 Unspecified asthma, uncomplicated; M54.5 Low back pain; G89.29 Other chronic pain; B35.3 Tinea pedis; R25.1 Tremor, unspecified; M62.81 Muscle weakness (generalized); R26.81 Unsteadiness on feet; Z99.89 Dependence on other enabling machines and devices; Z56.0 Unemployment, unspecified; Z59.0 Homelessness; S01.112D Laceration without foreign body of left eyelid and periocular area, subsequent encounter; W19.XXXD Unspecified fall, subsequent encounter
CPT/HCPCS: 36415; 80053; 80177; 82962; 84132; 85027; 85660; 86780; 93005; 93010; C9803; U0003

== ENCOUNTER 2021-12-22 15:38 | Inpatient (IN) | payer OTHER ==
[2021-12-22 15:48] VITALS: BMI 28.4
[2021-12-22] MEDS ORDERED: chlordiazePOXIDE HCL 25 MG CAPSULE PO PRN (17:07)
[2021-12-22] MEDS ORDERED: ONDANSETRON *ODT* 4 MG TABLET SL PRN (17:08)
[2021-12-22] MEDS ORDERED: ACETAMINOPHEN 325 MG TABLET (FP) PO PRN (17:08)
[2021-12-22] MEDS ORDERED: IBUPROFEN 600 MG TABLET (FP) PO PRN (17:08)
[2021-12-22] MEDS ORDERED: MAGNESIUM HYDROX 2400MG/30ML ORAL SUSPENSION 30 ML CUP PO PRN (17:08)
[2021-12-22] MEDS ORDERED: MAGNESIUM CITRATE 300 ML BOTTLE PO PRN (17:08)
[2021-12-22] MEDS ORDERED: NICOTINE 10 MG CARTRIDGE (INHALER) IH PRN (17:08)
[2021-12-22] MEDS ORDERED: BISMUTH SUBSALICYLATE 524 MG/30 ML PO PRN (17:08)
[2021-12-22] MEDS ORDERED: BENZOCAINE/MENTHOL (CHLORASEPTIC ) LOZENGE MM PRN (17:08)
[2021-12-22] MEDS ORDERED: MAG HYDROX/AL HYDROX/SIMETH 30 ML UNIT-DOSE CUP PO PRN (17:08)
[2021-12-22] MEDS ORDERED: LOPERAMIDE HCL 2 MG CAPSULE PO PRN (17:08)
[2021-12-22] MEDS ORDERED: DICYCLOMINE HCL 10 MG CAPSULE PO PRN (17:08)
[2021-12-22] MEDS ORDERED: levETIRAcetam 250 MG TABLET PO ONE (17:24)
[2021-12-22] MEDS: chlordiazePOXIDE HCL 25 MG CAPSULE PO SCH ×2 (20:02→23:37)
[2021-12-22] MEDS: hydrOXYzine PAMOATE 25 MG CAPSULE (FP) PO SCH ×2 (20:03→23:36)
[2021-12-22] MEDS: PRENATAL VITAMINS W/ FOLIC ACID TABLET (FP) PO SCH (20:03)
[2021-12-22] MEDS: MELATONIN 5 MG TABLETS PO SCH (23:37)
[2021-12-22] MEDS: levETIRAcetam 500 MG TABLET (FP) PO SCH (23:37)
[2021-12-22] MEDS: THIAMINE HCL 100 MG TABLET (FP) PO SCH (23:37)
[2021-12-23] MEDS: levETIRAcetam 500 MG TABLET (FP) PO SCH ×3 (06:30→22:33)
[2021-12-23] MEDS: hydrOXYzine PAMOATE 25 MG CAPSULE (FP) PO SCH ×5 (06:30→22:32)
[2021-12-23] MEDS: chlordiazePOXIDE HCL 25 MG CAPSULE PO SCH ×4 (06:30→22:33)
[2021-12-23] MEDS: PRENATAL VITAMINS W/ FOLIC ACID TABLET (FP) PO SCH (10:25)
[2021-12-23] MEDS: METHOCARBAMOL 500 MG TABLET PO PRN ×2 (10:25→18:26)
[2021-12-23] MEDS: BACITRACIN 0.9 GM PACKET TP SCH (10:26)
[2021-12-23 10:42] LABS: HEMATOCRIT 41.5 % (35.4-49); HEMOGLOBIN 13.8 GM/dL (11.7-16.9); MCH 31.8 pg (25.7-33.7); MCHC 33.1 g/dl (32.0-35.9); MEAN PLT VOLUME 7.8 fl (7.5-11.1); PLATELET COUNT 231 10^3/uL (134-434); RBC 4.32 M/mm3 (4.00-5.60); RDW 15.9 % (11.9-15.9); WHITE BLOOD COUNT 5.8 K/mm3 (4.0-10.0)
[2021-12-23 10:55] LABS: ALBUMIN 3.6 g/dl (3.4-5.0); CREATININE 0.7 mg/dL (0.55-1.3)
[2021-12-23 10:57] LABS: BILIRUBIN,TOTAL 0.9 mg/dL (0.2-1); CALCIUM 9.5 mg/dL (8.5-10.1); TOT PROT 6.7 g/dl (6.4-8.2)
[2021-12-23] MEDS: IBUPROFEN 400 MG TABLET (FP) PO PRN (18:54)
[2021-12-23] MEDS: THIAMINE HCL 100 MG TABLET (FP) PO SCH (22:33)
[2021-12-23] MEDS: ACETAMINOPHEN 325 MG TABLET (FP) PO PRN (22:36)
[2021-12-23] MEDS: MELATONIN 5 MG TABLETS PO SCH (22:42)
[2021-12-24] MEDS: hydrOXYzine PAMOATE 25 MG CAPSULE (FP) PO SCH ×5 (05:49→22:44)
[2021-12-24] MEDS: levETIRAcetam 500 MG TABLET (FP) PO SCH ×3 (05:49→22:43)
[2021-12-24] MEDS: chlordiazePOXIDE HCL 25 MG CAPSULE PO SCH ×4 (05:50→22:44)
[2021-12-24] MEDS: PRENATAL VITAMINS W/ FOLIC ACID TABLET (FP) PO SCH (10:35)
[2021-12-24] MEDS: METHOCARBAMOL 500 MG TABLET PO PRN (10:35)
[2021-12-24] MEDS: FLUoxetine HCL 20 MG CAPSULE PO SCH (10:35)
[2021-12-24] MEDS: BACITRACIN 0.9 GM PACKET TP SCH (10:35)
[2021-12-24] MEDS: ACETAMINOPHEN 325 MG TABLET (FP) PO PRN (10:37)
[2021-12-24] MEDS ORDERED: ALBUTEROL SO4 HFA INHALER IH PRN (16:29)
[2021-12-24] MEDS: IBUPROFEN 400 MG TABLET (FP) PO PRN (17:48)
[2021-12-24] MEDS: THIAMINE HCL 100 MG TABLET (FP) PO SCH (22:43)
[2021-12-24] MEDS: MELATONIN 5 MG TABLETS PO SCH (22:44)
[2021-12-25] MEDS ORDERED: chlordiazePOXIDE HCL 10 MG CAPSULE PO PRN
[2021-12-25] MEDS: chlordiazePOXIDE HCL 10 MG CAPSULE PO SCH ×4 (05:55→22:43)
[2021-12-25] MEDS: hydrOXYzine PAMOATE 25 MG CAPSULE (FP) PO SCH ×5 (05:55→22:42)
[2021-12-25] MEDS: levETIRAcetam 500 MG TABLET (FP) PO SCH ×3 (05:56→22:46)
[2021-12-25] MEDS: BACITRACIN 0.9 GM PACKET TP SCH (10:18)
[2021-12-25] MEDS: PRENATAL VITAMINS W/ FOLIC ACID TABLET (FP) PO SCH (10:18)
[2021-12-25] MEDS: FLUoxetine HCL 20 MG CAPSULE PO SCH (10:18)
[2021-12-25] MEDS: IBUPROFEN 400 MG TABLET (FP) PO PRN (17:44)
[2021-12-25] MEDS: METHOCARBAMOL 500 MG TABLET PO PRN ×2 (17:46→22:42)
[2021-12-25] MEDS: THIAMINE HCL 100 MG TABLET (FP) PO SCH (22:42)
[2021-12-25] MEDS: MELATONIN 5 MG TABLETS PO SCH (22:43)
[2021-12-26] MEDS: hydrOXYzine PAMOATE 25 MG CAPSULE (FP) PO SCH ×5 (05:55→22:36)
[2021-12-26] MEDS: chlordiazePOXIDE HCL 10 MG CAPSULE PO SCH ×2 (05:55→17:50)
[2021-12-26] MEDS: levETIRAcetam 500 MG TABLET (FP) PO SCH ×3 (05:56→22:36)
[2021-12-26] MEDS: FLUoxetine HCL 20 MG CAPSULE PO SCH (10:25)
[2021-12-26] MEDS: PRENATAL VITAMINS W/ FOLIC ACID TABLET (FP) PO SCH (10:25)
[2021-12-26] MEDS: BACITRACIN 0.9 GM PACKET TP SCH (10:25)
[2021-12-26] MEDS: IBUPROFEN 400 MG TABLET (FP) PO PRN (17:50)
[2021-12-26] MEDS: THIAMINE HCL 100 MG TABLET (FP) PO SCH (22:36)
[2021-12-26] MEDS: MELATONIN 5 MG TABLETS PO SCH (22:36)
[2021-12-26] MEDS: METHOCARBAMOL 500 MG TABLET PO PRN (22:37)
[2021-12-27] MEDS ORDERED: chlordiazePOXIDE HCL 10 MG CAPSULE PO ONE (05:00)
[2021-12-27] MEDS: hydrOXYzine PAMOATE 25 MG CAPSULE (FP) PO SCH ×3 (05:34→14:18)
[2021-12-27] MEDS: levETIRAcetam 500 MG TABLET (FP) PO SCH ×2 (05:35→14:18)
[2021-12-27] MEDS: IBUPROFEN 400 MG TABLET (FP) PO PRN (05:36)
[2021-12-27] MEDS: PRENATAL VITAMINS W/ FOLIC ACID TABLET (FP) PO SCH (10:29)
[2021-12-27] MEDS: BACITRACIN 0.9 GM PACKET TP SCH (10:29)
[2021-12-27] MEDS: FLUoxetine HCL 20 MG CAPSULE PO SCH (10:29)
[2021-12-27 13:32] VITALS: BP 125/80; PULSE 78; TEMP 97.7
== END 2021-12-27 15:25 | disposition home or self-care (01) | DRG 775 ==
LOC: YASAS 15:38 → Y6N 17:53
PROVIDERS: ADMIT Allergy & Immunology; ATTEND Surgery
PROC: HZ2ZZZZ Detoxification Services for Substance Abuse Treatment (ICD-10-PCS; principal; 2021-12-22)
DX: F10.230 Alcohol dependence with withdrawal, uncomplicated (principal); F10.24 Alcohol dependence with alcohol-induced mood disorder; F17.210 Nicotine dependence, cigarettes, uncomplicated; F32.A Depression, unspecified; J45.20 Mild intermittent asthma, uncomplicated; G40.909 Epilepsy, unspecified, not intractable, without status epilepticus; B35.3 Tinea pedis; M54.59 Other low back pain; G89.29 Other chronic pain; R26.2 Difficulty in walking, not elsewhere classified; Z99.89 Dependence on other enabling machines and devices; Z56.0 Unemployment, unspecified; Z59.01 Sheltered homelessness
CPT/HCPCS: 36415; 80053; 85027; 86780; C9803-CS; Q0162; U0003; U0005

== ENCOUNTER 2022-02-13 12:46 | Inpatient (IN) | payer OTHER ==
[2022-02-13 15:02] VITALS: BMI 27.4
[2022-02-13] MEDS ORDERED: LOPERAMIDE HCL 2 MG CAPSULE PO PRN (15:12)
[2022-02-13] MEDS ORDERED: MAGNESIUM CITRATE 300 ML BOTTLE PO PRN (15:12)
[2022-02-13] MEDS ORDERED: ONDANSETRON *ODT* 4 MG TABLET SL PRN (15:12)
[2022-02-13] MEDS ORDERED: MAGNESIUM HYDROX 2400MG/30ML ORAL SUSPENSION 30 ML CUP PO PRN (15:12)
[2022-02-13] MEDS ORDERED: chlordiazePOXIDE HCL 25 MG CAPSULE PO PRN (15:12)
[2022-02-13] MEDS ORDERED: NICOTINE 10 MG CARTRIDGE (INHALER) IH PRN (15:12)
[2022-02-13] MEDS ORDERED: MAG HYDROX/AL HYDROX/SIMETH 30 ML UNIT-DOSE CUP PO PRN (15:12)
[2022-02-13] MEDS ORDERED: IBUPROFEN 400 MG TABLET (FP) PO PRN (15:12)
[2022-02-13] MEDS ORDERED: BENZOCAINE/MENTHOL (CHLORASEPTIC ) LOZENGE MM PRN (15:12)
[2022-02-13] MEDS ORDERED: DICYCLOMINE HCL 10 MG CAPSULE PO PRN (15:12)
[2022-02-13] MEDS ORDERED: ACETAMINOPHEN 325 MG TABLET (FP) PO PRN (15:12)
[2022-02-13] MEDS ORDERED: IBUPROFEN 600 MG TABLET (FP) PO PRN (15:12)
[2022-02-13] MEDS ORDERED: BISMUTH SUBSALICYLATE 524 MG/30 ML PO PRN (15:12)
[2022-02-13] MEDS ORDERED: ALBUTEROL SO4 HFA INHALER IH PRN (15:17)
[2022-02-13] MEDS: hydrOXYzine PAMOATE 25 MG CAPSULE (FP) PO SCH ×2 (19:59→22:43)
[2022-02-13] MEDS: levETIRAcetam 250 MG TABLET PO SCH (20:00)
[2022-02-13] MEDS: chlordiazePOXIDE HCL 25 MG CAPSULE PO SCH ×2 (20:00→22:58)
[2022-02-13] MEDS: NICOTINE 21 MG/24 HOURS TOPICAL PATCH TD SCH (20:03)
[2022-02-13] MEDS: PRENATAL VITAMINS W/ FOLIC ACID TABLET (FP) PO SCH (20:05)
[2022-02-13] MEDS: MELATONIN 5 MG TABLETS PO SCH (22:42)
[2022-02-13] MEDS: ACETAMINOPHEN 325 MG TABLET (FP) PO PRN (22:43)
[2022-02-13] MEDS: THIAMINE HCL 100 MG TABLET (FP) PO SCH (22:43)
[2022-02-14] MEDS: levETIRAcetam 250 MG TABLET PO SCH ×4 (01:21→22:50)
[2022-02-14] MEDS: hydrOXYzine PAMOATE 25 MG CAPSULE (FP) PO SCH ×5 (06:22→22:51)
[2022-02-14] MEDS: chlordiazePOXIDE HCL 25 MG CAPSULE PO SCH ×4 (06:22→22:50)
[2022-02-14] MEDS: METHOCARBAMOL 500 MG TABLET PO PRN (10:49)
[2022-02-14] MEDS: PRENATAL VITAMINS W/ FOLIC ACID TABLET (FP) PO SCH (10:49)
[2022-02-14] MEDS: NICOTINE 21 MG/24 HOURS TOPICAL PATCH TD SCH (10:50)
[2022-02-14 11:14] LABS: HEMATOCRIT 40.5 % (35.4-49); HEMOGLOBIN 13.7 GM/dL (11.7-16.9); MCH 31.7 pg (25.7-33.7); MCHC 33.8 g/dl (32.0-35.9); MEAN CELL VOLUME 93.9 fl (80-96); MEAN PLT VOLUME 7.5 fl (7.5-11.1); PLATELET COUNT 313 10^3/uL (134-434); RBC 4.32 M/mm3 (4.00-5.60); RDW 14.5 % (11.9-15.9)
[2022-02-14 11:19] LABS: ALBUMIN 3.4 g/dl (3.4-5.0); BLOOD UREA NITROGEN 7.8 mg/dL (7-18); CALCIUM 9.4 mg/dL (8.5-10.1)
[2022-02-14 11:22] LABS: CREATININE 0.6 mg/dL (0.55-1.3)
[2022-02-14 11:23] LABS: TOT PROT 6.7 g/dl (6.4-8.2)
[2022-02-14 11:24] LABS: BILIRUBIN,TOTAL 0.9 mg/dL (0.2-1)
[2022-02-14] MEDS: THIAMINE HCL 100 MG TABLET (FP) PO SCH (22:50)
[2022-02-14] MEDS: MELATONIN 5 MG TABLETS PO SCH (22:51)
[2022-02-14] MEDS: ACETAMINOPHEN 325 MG TABLET (FP) PO PRN (22:54)
[2022-02-15] MEDS: chlordiazePOXIDE HCL 25 MG CAPSULE PO SCH ×4 (06:59→22:35)
[2022-02-15] MEDS: levETIRAcetam 250 MG TABLET PO SCH ×3 (07:03→21:27)
[2022-02-15] MEDS: hydrOXYzine PAMOATE 25 MG CAPSULE (FP) PO SCH ×5 (07:03→21:27)
[2022-02-15] MEDS: PRENATAL VITAMINS W/ FOLIC ACID TABLET (FP) PO SCH (10:53)
[2022-02-15] MEDS: METHOCARBAMOL 500 MG TABLET PO PRN ×2 (10:53→21:27)
[2022-02-15] MEDS: NICOTINE 21 MG/24 HOURS TOPICAL PATCH TD SCH (10:54)
[2022-02-15] MEDS ORDERED: LACTULOSE 20 GM/30 ML UDC (FOR ORAL USE ONLY) PO ONE (14:44)
[2022-02-15] MEDS: THIAMINE HCL 100 MG TABLET (FP) PO SCH (21:27)
[2022-02-15] MEDS: MELATONIN 5 MG TABLETS PO SCH (21:28)
[2022-02-16] MEDS ORDERED: chlordiazePOXIDE HCL 10 MG CAPSULE PO PRN
[2022-02-16] MEDS: levETIRAcetam 250 MG TABLET PO SCH ×3 (06:33→22:45)
[2022-02-16] MEDS: chlordiazePOXIDE HCL 10 MG CAPSULE PO SCH ×4 (06:33→22:45)
[2022-02-16] MEDS: hydrOXYzine PAMOATE 25 MG CAPSULE (FP) PO SCH ×3 (06:33→13:16)
[2022-02-16] MEDS: PRENATAL VITAMINS W/ FOLIC ACID TABLET (FP) PO SCH (10:43)
[2022-02-16] MEDS: LACTULOSE 20 GM/30 ML UDC (FOR ORAL USE ONLY) PO SCH ×4 (10:44→22:46)
[2022-02-16] MEDS: NICOTINE 21 MG/24 HOURS TOPICAL PATCH TD SCH (10:44)
[2022-02-16] MEDS: THIAMINE HCL 100 MG TABLET (FP) PO SCH (22:45)
[2022-02-16] MEDS: MELATONIN 5 MG TABLETS PO SCH (22:45)
[2022-02-17] MEDS: hydrOXYzine PAMOATE 25 MG CAPSULE (FP) PO SCH ×6 (00:55→22:28)
[2022-02-17] MEDS: levETIRAcetam 250 MG TABLET PO SCH ×3 (05:51→22:28)
[2022-02-17] MEDS: chlordiazePOXIDE HCL 10 MG CAPSULE PO SCH ×2 (05:51→18:30)
[2022-02-17] MEDS: PRENATAL VITAMINS W/ FOLIC ACID TABLET (FP) PO SCH (10:18)
[2022-02-17] MEDS: NICOTINE 21 MG/24 HOURS TOPICAL PATCH TD SCH (10:18)
[2022-02-17] MEDS: LACTULOSE 20 GM/30 ML UDC (FOR ORAL USE ONLY) PO SCH ×4 (10:20→22:30)
[2022-02-17] MEDS: THIAMINE HCL 100 MG TABLET (FP) PO SCH (22:28)
[2022-02-17] MEDS: MELATONIN 5 MG TABLETS PO SCH (22:29)
[2022-02-18] MEDS ORDERED: chlordiazePOXIDE HCL 10 MG CAPSULE PO ONE (05:00)
[2022-02-18] MEDS: hydrOXYzine PAMOATE 25 MG CAPSULE (FP) PO SCH ×5 (06:17→22:10)
[2022-02-18] MEDS: levETIRAcetam 250 MG TABLET PO SCH ×3 (06:17→22:09)
[2022-02-18] MEDS: PRENATAL VITAMINS W/ FOLIC ACID TABLET (FP) PO SCH (11:35)
[2022-02-18] MEDS: NICOTINE 21 MG/24 HOURS TOPICAL PATCH TD SCH (11:36)
[2022-02-18] MEDS: LACTULOSE 20 GM/30 ML UDC (FOR ORAL USE ONLY) PO SCH ×4 (11:37→22:09)
[2022-02-18] MEDS: THIAMINE HCL 100 MG TABLET (FP) PO SCH (22:09)
[2022-02-18] MEDS: MELATONIN 5 MG TABLETS PO SCH (22:10)
[2022-02-19] MEDS: hydrOXYzine PAMOATE 25 MG CAPSULE (FP) PO SCH ×2 (06:03→11:07)
[2022-02-19] MEDS: levETIRAcetam 250 MG TABLET PO SCH (06:03)
[2022-02-19 09:34] VITALS: BP 123/79; PULSE 76; RESP 16; TEMP 98.1
[2022-02-19] MEDS: PRENATAL VITAMINS W/ FOLIC ACID TABLET (FP) PO SCH (11:06)
[2022-02-19] MEDS: LACTULOSE 20 GM/30 ML UDC (FOR ORAL USE ONLY) PO SCH (11:06)
[2022-02-19] MEDS: NICOTINE 21 MG/24 HOURS TOPICAL PATCH TD SCH (11:07)
== END 2022-02-19 11:37 | disposition home or self-care (01) | DRG 775 ==
LOC: YASAS 12:46 → Y6N 18:28
PROVIDERS: ADMIT Allergy & Immunology; ATTEND Surgery
PROC: HZ2ZZZZ Detoxification Services for Substance Abuse Treatment (ICD-10-PCS; principal; 2022-02-13)
DX: F10.230 Alcohol dependence with withdrawal, uncomplicated (principal); F10.24 Alcohol dependence with alcohol-induced mood disorder; F17.213 Nicotine dependence, cigarettes, with withdrawal; G40.909 Epilepsy, unspecified, not intractable, without status epilepticus; J45.20 Mild intermittent asthma, uncomplicated; E72.20 Disorder of urea cycle metabolism, unspecified; R29.2 Abnormal reflex; Z99.89 Dependence on other enabling machines and devices
CPT/HCPCS: 36415; 80053; 82140; 85027; 86780; C9803-CS; U0003; U0005

== ENCOUNTER 2022-04-10 10:59 | Inpatient (IN) | payer OTHER ==
[2022-04-10 12:10] VITALS: BMI 21.4
[2022-04-10] MEDS ORDERED: chlordiazePOXIDE HCL 25 MG CAPSULE PO PRN (13:15)
[2022-04-10] MEDS ORDERED: ALBUTEROL SO4 HFA INHALER IH PRN (13:16)
[2022-04-10] MEDS ORDERED: NICOTINE POLACRILEX 2 MG GUM BUC PRN (13:34)
[2022-04-10] MEDS ORDERED: MAG HYDROX/AL HYDROX/SIMETH 30 ML UNIT-DOSE CUP PO PRN (13:50)
[2022-04-10] MEDS ORDERED: IBUPROFEN 600 MG TABLET (FP) PO PRN (13:50)
[2022-04-10] MEDS ORDERED: DICYCLOMINE HCL 10 MG CAPSULE PO PRN (13:50)
[2022-04-10] MEDS ORDERED: ACETAMINOPHEN 325 MG TABLET (FP) PO PRN (13:50)
[2022-04-10] MEDS ORDERED: NICOTINE 10 MG CARTRIDGE (INHALER) IH PRN (13:50)
[2022-04-10] MEDS ORDERED: BENZOCAINE/MENTHOL (CHLORASEPTIC ) LOZENGE MM PRN (13:50)
[2022-04-10] MEDS ORDERED: ONDANSETRON *ODT* 4 MG TABLET SL PRN (13:50)
[2022-04-10] MEDS ORDERED: NALOXONE HCL (KLOXXADO) 8 MG SPRAY NS PRN (13:50)
[2022-04-10] MEDS ORDERED: BISMUTH SUBSALICYLATE 262 MG/15 ML BTL PO PRN (13:50)
[2022-04-10] MEDS ORDERED: LOPERAMIDE HCL 2 MG CAPSULE PO PRN (13:50)
[2022-04-10] MEDS ORDERED: MAGNESIUM HYDROX 2400MG/30ML ORAL SUSPENSION 30 ML CUP PO PRN (13:50)
[2022-04-10] MEDS ORDERED: MAGNESIUM CITRATE 300 ML BOTTLE PO PRN (13:50)
[2022-04-10] MEDS ORDERED: METHOCARBAMOL 500 MG TABLET PO PRN (13:50)
[2022-04-10] MEDS: hydrOXYzine PAMOATE 25 MG CAPSULE (FP) PO SCH ×3 (14:14→22:49)
[2022-04-10] MEDS: PRENATAL VITAMINS W/ FOLIC ACID TABLET (FP) PO SCH (14:15)
[2022-04-10] MEDS: levETIRAcetam 250 MG TABLET PO SCH ×2 (15:08→22:48)
[2022-04-10] MEDS: IBUPROFEN 400 MG TABLET (FP) PO PRN (15:08)
[2022-04-10] MEDS: chlordiazePOXIDE HCL 25 MG CAPSULE PO SCH ×2 (17:44→22:48)
[2022-04-10] MEDS: THIAMINE HCL 100 MG TABLET (FP) PO SCH (22:49)
[2022-04-10] MEDS: MELATONIN 5 MG TABLETS PO SCH (22:49)
[2022-04-11] MEDS: levETIRAcetam 250 MG TABLET PO SCH ×3 (06:01→23:04)
[2022-04-11] MEDS: chlordiazePOXIDE HCL 25 MG CAPSULE PO SCH ×4 (06:02→23:03)
[2022-04-11] MEDS: hydrOXYzine PAMOATE 25 MG CAPSULE (FP) PO SCH ×5 (06:02→23:03)
[2022-04-11] MEDS: PRENATAL VITAMINS W/ FOLIC ACID TABLET (FP) PO SCH (11:01)
[2022-04-11 12:50] LABS: HEMATOCRIT 38.8 % (35.4-49); HEMOGLOBIN 13.2 GM/dL (11.7-16.9); MCH 32.4 pg (25.7-33.7); MEAN CELL VOLUME 95.2 fl (80-96); MEAN PLT VOLUME 7.5 fl (7.5-11.1); PLATELET COUNT 256 10^3/uL (134-434); RBC 4.08 M/mm3 (4.00-5.60); RDW 14.9 % (11.9-15.9); WHITE BLOOD COUNT 5.9 K/mm3 (4.0-10.0)
[2022-04-11 12:53] LABS: CALCIUM 9.3 mg/dL (8.5-10.1)
[2022-04-11 12:54] LABS: ALBUMIN 3.1 g/dl (3.4-5.0); BLOOD UREA NITROGEN 7.1 mg/dL (7-18)
[2022-04-11 12:57] LABS: CREATININE 0.6 mg/dL (0.55-1.3)
[2022-04-11 12:58] LABS: BILIRUBIN,TOTAL 0.4 mg/dL (0.2-1)
[2022-04-11 12:59] LABS: TOT PROT 6.2 g/dl (6.4-8.2)
[2022-04-11] MEDS ORDERED: POTASSIUM CHLORIDE ORAL LIQUID 20 MEQ/15 ML PO ONE (13:25)
[2022-04-11] MEDS: ACETAMINOPHEN 325 MG TABLET (FP) PO PRN (18:26)
[2022-04-11] MEDS: THIAMINE HCL 100 MG TABLET (FP) PO SCH (23:02)
[2022-04-11] MEDS: MELATONIN 5 MG TABLETS PO SCH (23:03)
[2022-04-11] MEDS: POTASSIUM CHLORIDE ORAL LIQUID 20 MEQ/15 ML PO SCH (23:04)
[2022-04-12] MEDS: levETIRAcetam 250 MG TABLET PO SCH ×3 (05:52→22:02)
[2022-04-12] MEDS: chlordiazePOXIDE HCL 25 MG CAPSULE PO SCH ×4 (05:52→22:01)
[2022-04-12] MEDS: hydrOXYzine PAMOATE 25 MG CAPSULE (FP) PO SCH ×5 (05:52→22:01)
[2022-04-12] MEDS: PRENATAL VITAMINS W/ FOLIC ACID TABLET (FP) PO SCH (11:47)
[2022-04-12] MEDS: FLUoxetine HCL 20 MG CAPSULE PO SCH (11:47)
[2022-04-12] MEDS: POTASSIUM CHLORIDE ORAL LIQUID 20 MEQ/15 ML PO SCH ×2 (11:47→22:02)
[2022-04-12] MEDS ORDERED: COLLOIDAL OATMEAL 1 BAR EACH TP PRN (19:48)
[2022-04-12] MEDS: THIAMINE HCL 100 MG TABLET (FP) PO SCH (22:02)
[2022-04-12] MEDS: MELATONIN 5 MG TABLETS PO SCH (22:02)
[2022-04-13] MEDS ORDERED: chlordiazePOXIDE HCL 10 MG CAPSULE PO PRN
[2022-04-13] MEDS: chlordiazePOXIDE HCL 10 MG CAPSULE PO SCH ×4 (06:11→22:46)
[2022-04-13] MEDS: levETIRAcetam 250 MG TABLET PO SCH ×3 (06:11→22:46)
[2022-04-13] MEDS: hydrOXYzine PAMOATE 25 MG CAPSULE (FP) PO SCH ×5 (06:11→22:46)
[2022-04-13] MEDS: FLUoxetine HCL 20 MG CAPSULE PO SCH (10:17)
[2022-04-13] MEDS: PRENATAL VITAMINS W/ FOLIC ACID TABLET (FP) PO SCH (10:17)
[2022-04-13] MEDS: THIAMINE HCL 100 MG TABLET (FP) PO SCH (22:46)
[2022-04-13] MEDS: MELATONIN 5 MG TABLETS PO SCH (22:46)
[2022-04-14] MEDS: levETIRAcetam 250 MG TABLET PO SCH ×3 (06:29→22:49)
[2022-04-14] MEDS: hydrOXYzine PAMOATE 25 MG CAPSULE (FP) PO SCH ×5 (06:29→22:49)
[2022-04-14] MEDS: chlordiazePOXIDE HCL 10 MG CAPSULE PO SCH ×2 (06:29→17:58)
[2022-04-14] MEDS: PRENATAL VITAMINS W/ FOLIC ACID TABLET (FP) PO SCH (10:34)
[2022-04-14] MEDS: FLUoxetine HCL 20 MG CAPSULE PO SCH (10:35)
[2022-04-14] MEDS: THIAMINE HCL 100 MG TABLET (FP) PO SCH (22:49)
[2022-04-14] MEDS: MELATONIN 5 MG TABLETS PO SCH (22:49)
[2022-04-15] MEDS ORDERED: chlordiazePOXIDE HCL 10 MG CAPSULE PO ONE (05:00)
[2022-04-15] MEDS: levETIRAcetam 250 MG TABLET PO SCH ×3 (07:02→22:41)
[2022-04-15] MEDS: hydrOXYzine PAMOATE 25 MG CAPSULE (FP) PO SCH ×5 (07:02→22:43)
[2022-04-15] MEDS: FLUoxetine HCL 20 MG CAPSULE PO SCH (09:52)
[2022-04-15] MEDS: PRENATAL VITAMINS W/ FOLIC ACID TABLET (FP) PO SCH (09:52)
[2022-04-15] MEDS: ACETAMINOPHEN 325 MG TABLET (FP) PO PRN (18:03)
[2022-04-15] MEDS: MELATONIN 5 MG TABLETS PO SCH (22:41)
[2022-04-15] MEDS: THIAMINE HCL 100 MG TABLET (FP) PO SCH (22:41)
[2022-04-16 06:25] VITALS: RESP 16
[2022-04-16] MEDS: hydrOXYzine PAMOATE 25 MG CAPSULE (FP) PO SCH ×2 (06:33→10:32)
[2022-04-16] MEDS: levETIRAcetam 250 MG TABLET PO SCH (06:33)
[2022-04-16] MEDS: IBUPROFEN 400 MG TABLET (FP) PO PRN (06:43)
[2022-04-16] MEDS: PRENATAL VITAMINS W/ FOLIC ACID TABLET (FP) PO SCH (10:31)
[2022-04-16] MEDS: FLUoxetine HCL 20 MG CAPSULE PO SCH (10:31)
[2022-04-16 12:30] VITALS: BP 111/78; PULSE 59; TEMP 98.4
== END 2022-04-16 13:57 | disposition home or self-care (01) | DRG 775 ==
LOC: YASAS 10:59 → Y3N 13:02
PROVIDERS: ADMIT Allergy & Immunology; ATTEND Psychiatry & Neurology Psychiatry
PROC: HZ2ZZZZ Detoxification Services for Substance Abuse Treatment (ICD-10-PCS; principal; 2022-04-10)
DX: F10.230 Alcohol dependence with withdrawal, uncomplicated (principal); F13.20 Sedative, hypnotic or anxiolytic dependence, uncomplicated; F17.210 Nicotine dependence, cigarettes, uncomplicated; F32.A Depression, unspecified; G40.909 Epilepsy, unspecified, not intractable, without status epilepticus; J45.20 Mild intermittent asthma, uncomplicated; E46 Unspecified protein-calorie malnutrition; E87.6 Hypokalemia; Z68.21 Body mass index [BMI] 21.0-21.9, adult; R73.9 Hyperglycemia, unspecified; Z87.820 Personal history of traumatic brain injury; Z99.89 Dependence on other enabling machines and devices; Z59.01 Sheltered homelessness; Z56.0 Unemployment, unspecified
CPT/HCPCS: 36415; 80053; 82947; 82962; 83036; 84132; 85027; 86780; C9803-CS; U0003; U0005

== ENCOUNTER 2022-11-14 12:57 | Inpatient (IN) | payer OTHER ==
[2022-11-14 14:03] VITALS: BMI 24.3
[2022-11-14] MEDS ORDERED: ALBUTEROL SO4 HFA INHALER IH PRN (16:05)
[2022-11-14] MEDS ORDERED: ONDANSETRON *ODT* 4 MG TABLET SL PRN (16:59)
[2022-11-14] MEDS ORDERED: NICOTINE POLACRILEX 2 MG GUM BUC PRN (16:59)
[2022-11-14] MEDS ORDERED: BENZOCAINE/MENTHOL (CHLORASEPTIC ) LOZENGE MM PRN (16:59)
[2022-11-14] MEDS ORDERED: DICYCLOMINE HCL 10 MG CAPSULE PO PRN (16:59)
[2022-11-14] MEDS ORDERED: MAG HYDROX/AL HYDROX/SIMETH 30 ML UNIT-DOSE CUP PO PRN (16:59)
[2022-11-14] MEDS ORDERED: P-EPHED 60MG/TRIPROLIDI 2.5MG TABLET PO PRN (16:59)
[2022-11-14] MEDS ORDERED: hydrOXYzine PAMOATE 25 MG CAPSULE (FP) PO PRN (16:59)
[2022-11-14] MEDS ORDERED: ACETAMINOPHEN 325 MG TABLET (FP) PO PRN (16:59)
[2022-11-14] MEDS ORDERED: IBUPROFEN 600 MG TABLET (FP) PO PRN (16:59)
[2022-11-14] MEDS ORDERED: POLYETHYLENE GLYCOL (HEALTHYLAX) 3350 17 GM PACKET PO PRN (16:59)
[2022-11-14] MEDS ORDERED: IBUPROFEN 400 MG TABLET (FP) PO PRN (16:59)
[2022-11-14] MEDS ORDERED: MAGNESIUM HYDROX 2400MG/30ML ORAL SUSPENSION 30 ML CUP PO PRN (16:59)
[2022-11-14] MEDS ORDERED: BENZONATATE 200 MG CAPSULE PO PRN (16:59)
[2022-11-14] MEDS ORDERED: BISMUTH SUBSALICYLATE 524 MG/30 ML PO PRN (16:59)
[2022-11-14] MEDS ORDERED: guaiFENesin 600 MG TABLET.ER (FP) PO PRN (16:59)
[2022-11-14] MEDS ORDERED: LOPERAMIDE HCL 2 MG CAPSULE PO PRN (16:59)
[2022-11-14] MEDS ORDERED: chlordiazePOXIDE HCL 25 MG CAPSULE PO PRN (17:01)
[2022-11-14] MEDS ORDERED: COLLOIDAL OATMEAL 1 BAR EACH TP PRN (17:03)
[2022-11-14] MEDS ORDERED: chlordiazePOXIDE HCL 25 MG CAPSULE ONE (17:14)
[2022-11-14] MEDS ORDERED: LORazepam 2 MG/ML SDV VIAL IM ONE (17:15)
[2022-11-14] MEDS ORDERED: MELATONIN 5 MG TABLETS PO SCH (22:00)
[2022-11-14] MEDS ORDERED: THIAMINE HCL 100 MG TABLET (FP) PO SCH (22:00)
[2022-11-14] MEDS: LACOSAMIDE 50 MG TABLET PO SCH (22:03)
[2022-11-14] MEDS: chlordiazePOXIDE HCL 25 MG CAPSULE PO SCH (22:03)
[2022-11-14] MEDS: levETIRAcetam 250 MG TABLET PO SCH (22:03)
[2022-11-14] MEDS: BACITRACIN ZINC 15 GM TUBE TOPICAL OINTMENT TP SCH (22:04)
[2022-11-15] MEDS: chlordiazePOXIDE HCL 25 MG CAPSULE PO SCH ×2 (05:41→10:50)
[2022-11-15] MEDS ORDERED: PRENATAL VITAMINS W/ FOLIC ACID TABLET (FP) PO SCH (10:00)
[2022-11-15] MEDS: LACOSAMIDE 50 MG TABLET PO SCH (10:50)
[2022-11-15] MEDS: levETIRAcetam 250 MG TABLET PO SCH (10:50)
[2022-11-15 10:51] VITALS: BP 116/79; PULSE 86; RESP 18; TEMP 97.1
[2022-11-15] MEDS ORDERED: BACITRACIN 0.9 GM PACKET TP SCH (11:00)
[2022-11-15] MEDS: BACITRACIN ZINC 15 GM TUBE TOPICAL OINTMENT TP SCH (11:01)
[2022-11-16] MEDS ORDERED: chlordiazePOXIDE HCL 25 MG CAPSULE PO SCH (05:00)
[2022-11-17] MEDS ORDERED: chlordiazePOXIDE HCL 10 MG CAPSULE PO PRN
[2022-11-17] MEDS ORDERED: chlordiazePOXIDE HCL 10 MG CAPSULE PO SCH (05:00)
[2022-11-18] MEDS ORDERED: chlordiazePOXIDE HCL 10 MG CAPSULE PO SCH (05:00)
[2022-11-19] MEDS ORDERED: chlordiazePOXIDE HCL 10 MG CAPSULE PO ONE (05:00)
== END 2022-11-15 13:10 | disposition left against medical advice (07) | DRG 770 ==
LOC: YASAS 12:57 → Y6N 17:05
PROVIDERS: ADMIT Allergy & Immunology; ATTEND Surgery
PROC: HZ2ZZZZ Detoxification Services for Substance Abuse Treatment (ICD-10-PCS; principal; 2022-11-14)
DX: F10.230 Alcohol dependence with withdrawal, uncomplicated (principal); F17.210 Nicotine dependence, cigarettes, uncomplicated; F41.9 Anxiety disorder, unspecified; F32.A Depression, unspecified; G40.909 Epilepsy, unspecified, not intractable, without status epilepticus; M54.50 Low back pain, unspecified; G89.29 Other chronic pain; M62.81 Muscle weakness (generalized); Z99.89 Dependence on other enabling machines and devices
CPT/HCPCS: C9803-CS; U0003; U0005

== ENCOUNTER 2022-11-19 15:03 | Inpatient (IN) | payer OTHER ==
[2022-11-19 15:37] VITALS: BMI 22.0
[2022-11-19] MEDS ORDERED: ALBUTEROL SO4 HFA INHALER IH PRN (16:46)
[2022-11-19] MEDS ORDERED: NICOTINE 7 MG/24 HOURS TOPICAL PATCH TD PRN (17:00)
[2022-11-19] MEDS ORDERED: guaiFENesin 600 MG TABLET.ER (FP) PO PRN (17:00)
[2022-11-19] MEDS ORDERED: BISMUTH SUBSALICYLATE 524 MG/30 ML PO PRN (17:00)
[2022-11-19] MEDS ORDERED: NICOTINE 10 MG CARTRIDGE (INHALER) IH PRN (17:00)
[2022-11-19] MEDS ORDERED: MAG HYDROX/AL HYDROX/SIMETH 30 ML UNIT-DOSE CUP PO PRN (17:00)
[2022-11-19] MEDS ORDERED: P-EPHED 60MG/TRIPROLIDI 2.5MG TABLET PO PRN (17:00)
[2022-11-19] MEDS ORDERED: LOPERAMIDE HCL 2 MG CAPSULE PO PRN (17:00)
[2022-11-19] MEDS ORDERED: BENZOCAINE/MENTHOL (CHLORASEPTIC ) LOZENGE MM PRN (17:00)
[2022-11-19] MEDS ORDERED: MAGNESIUM HYDROX 2400MG/30ML ORAL SUSPENSION 30 ML CUP PO PRN (17:00)
[2022-11-19] MEDS ORDERED: IBUPROFEN 400 MG TABLET (FP) PO PRN (17:00)
[2022-11-19] MEDS ORDERED: ONDANSETRON *ODT* 4 MG TABLET SL PRN (17:00)
[2022-11-19] MEDS ORDERED: DICYCLOMINE HCL 10 MG CAPSULE PO PRN (17:00)
[2022-11-19] MEDS ORDERED: BENZONATATE 200 MG CAPSULE PO PRN (17:00)
[2022-11-19] MEDS ORDERED: POLYETHYLENE GLYCOL (HEALTHYLAX) 3350 17 GM PACKET PO PRN (17:00)
[2022-11-19] MEDS ORDERED: NICOTINE POLACRILEX 2 MG GUM BUC PRN (17:00)
[2022-11-19] MEDS ORDERED: chlordiazePOXIDE HCL 25 MG CAPSULE ONE (18:04)
[2022-11-19] MEDS: chlordiazePOXIDE HCL 25 MG CAPSULE PO SCH ×2 (18:06→22:16)
[2022-11-19] MEDS ORDERED: LACOSAMIDE 100 MG TABLET PO SCH (22:00)
[2022-11-19] MEDS: levETIRAcetam 500 MG TABLET (FP) PO SCH (22:15)
[2022-11-19] MEDS: MELATONIN 5 MG TABLETS PO PRN (22:16)
[2022-11-19] MEDS: THIAMINE HCL 100 MG TABLET (FP) PO SCH (22:16)
[2022-11-19] MEDS ORDERED: LACOSAMIDE 50 MG TABLET PO SCH (22:18)
[2022-11-19] MEDS: LACOSAMIDE 50 MG TABLET PO SCH (22:26)
[2022-11-20] MEDS: chlordiazePOXIDE HCL 25 MG CAPSULE PO SCH ×5 (05:57→22:44)
[2022-11-20] MEDS: levETIRAcetam 500 MG TABLET (FP) PO SCH (10:33)
[2022-11-20] MEDS: LACOSAMIDE 50 MG TABLET PO SCH ×3 (10:33→22:44)
[2022-11-20] MEDS: PRENATAL VITAMINS W/ FOLIC ACID TABLET (FP) PO SCH (10:34)
[2022-11-20] MEDS ORDERED: BACITRACIN 0.9 GM PACKET TP ONE (15:10)
[2022-11-20] MEDS: chlordiazePOXIDE HCL 25 MG CAPSULE PO PRN (20:10)
[2022-11-20] MEDS: ACETAMINOPHEN 325 MG TABLET (FP) PO PRN (20:36)
[2022-11-20] MEDS: MELATONIN 5 MG TABLETS PO PRN (22:26)
[2022-11-20] MEDS: levETIRAcetam 250 MG TABLET PO SCH ×2 (22:26→22:44)
[2022-11-20] MEDS: THIAMINE HCL 100 MG TABLET (FP) PO SCH ×2 (22:26→22:44)
[2022-11-20] MEDS: BACITRACIN 0.9 GM PACKET TP SCH ×2 (22:26→22:40)
[2022-11-21] MEDS: chlordiazePOXIDE HCL 25 MG CAPSULE PO PRN ×3 (00:11→15:12)
[2022-11-21] MEDS ORDERED: levETIRAcetam 250 MG TABLET PO ONE (00:21)
[2022-11-21] MEDS: IBUPROFEN 600 MG TABLET (FP) PO PRN ×2 (00:46→15:11)
[2022-11-21] MEDS: levETIRAcetam 250 MG TABLET PO SCH ×3 (06:08→22:52)
[2022-11-21] MEDS: chlordiazePOXIDE HCL 25 MG CAPSULE PO SCH ×4 (06:11→22:53)
[2022-11-21] MEDS: BACITRACIN 0.9 GM PACKET TP SCH ×2 (09:05→22:52)
[2022-11-21] MEDS: LACOSAMIDE 50 MG TABLET PO SCH ×2 (10:28→22:51)
[2022-11-21] MEDS: PRENATAL VITAMINS W/ FOLIC ACID TABLET (FP) PO SCH (10:28)
[2022-11-21] MEDS: MELATONIN 5 MG TABLETS PO PRN (22:51)
[2022-11-21] MEDS: THIAMINE HCL 100 MG TABLET (FP) PO SCH (22:51)
[2022-11-22] MEDS ORDERED: chlordiazePOXIDE HCL 10 MG CAPSULE PO PRN
[2022-11-22] MEDS: chlordiazePOXIDE HCL 10 MG CAPSULE PO SCH ×4 (05:55→22:34)
[2022-11-22] MEDS: levETIRAcetam 250 MG TABLET PO SCH ×3 (06:07→22:33)
[2022-11-22] MEDS: LACOSAMIDE 50 MG TABLET PO SCH ×2 (10:21→22:33)
[2022-11-22] MEDS: PRENATAL VITAMINS W/ FOLIC ACID TABLET (FP) PO SCH (10:21)
[2022-11-22] MEDS: BACITRACIN 0.9 GM PACKET TP SCH ×2 (10:21→22:31)
[2022-11-22] MEDS: ACETAMINOPHEN 325 MG TABLET (FP) PO PRN (17:33)
[2022-11-22] MEDS: THIAMINE HCL 100 MG TABLET (FP) PO SCH (21:34)
[2022-11-22 21:51] VITALS: PULSE 76
[2022-11-23] MEDS ORDERED: chlordiazePOXIDE HCL 10 MG CAPSULE PO SCH (05:00)
[2022-11-23] MEDS: levETIRAcetam 250 MG TABLET PO SCH (05:33)
[2022-11-23] MEDS: IBUPROFEN 600 MG TABLET (FP) PO PRN (05:34)
[2022-11-23 06:06] VITALS: BP 107/66; RESP 18; TEMP 98.1
[2022-11-24] MEDS ORDERED: chlordiazePOXIDE HCL 10 MG CAPSULE PO ONE (05:00)
== END 2022-11-23 09:25 | disposition home or self-care (01) | DRG 775 ==
LOC: YASAS 15:03 → Y6N 18:50
PROVIDERS: ADMIT Allergy & Immunology; ATTEND Surgery
PROC: HZ2ZZZZ Detoxification Services for Substance Abuse Treatment (ICD-10-PCS; principal; 2022-11-19)
DX: F10.230 Alcohol dependence with withdrawal, uncomplicated (principal); F17.210 Nicotine dependence, cigarettes, uncomplicated; F10.282 Alcohol dependence with alcohol-induced sleep disorder; F10.24 Alcohol dependence with alcohol-induced mood disorder; F41.8 Other specified anxiety disorders; J45.20 Mild intermittent asthma, uncomplicated; G40.909 Epilepsy, unspecified, not intractable, without status epilepticus; M54.50 Low back pain, unspecified; G89.29 Other chronic pain; R26.89 Other abnormalities of gait and mobility; Z99.89 Dependence on other enabling machines and devices; Z87.820 Personal history of traumatic brain injury
CPT/HCPCS: C9803-CS; U0003; U0005

== ENCOUNTER 2023-01-09 20:59 | Inpatient (IN) | payer OTHER ==
[2023-01-09 23:33] VITALS: BMI 21.1
[2023-01-09] MEDS ORDERED: ALBUTEROL SO4 HFA INHALER IH PRN (23:50)
[2023-01-09] MEDS ORDERED: NICOTINE 10 MG CARTRIDGE (INHALER) IH PRN (23:56)
[2023-01-09] MEDS ORDERED: MAGNESIUM HYDROX 2400MG/30ML ORAL SUSPENSION 30 ML CUP PO PRN (23:56)
[2023-01-09] MEDS ORDERED: IBUPROFEN 400 MG TABLET (FP) PO PRN (23:56)
[2023-01-09] MEDS ORDERED: BENZOCAINE/MENTHOL (CHLORASEPTIC ) LOZENGE MM PRN (23:56)
[2023-01-09] MEDS ORDERED: NICOTINE POLACRILEX 2 MG GUM BUC PRN (23:56)
[2023-01-09] MEDS ORDERED: POLYETHYLENE GLYCOL (HEALTHYLAX) 3350 17 GM PACKET PO PRN (23:56)
[2023-01-09] MEDS ORDERED: DICYCLOMINE HCL 10 MG CAPSULE PO PRN (23:56)
[2023-01-09] MEDS ORDERED: LOPERAMIDE HCL 2 MG CAPSULE PO PRN (23:56)
[2023-01-09] MEDS ORDERED: ONDANSETRON *ODT* 4 MG TABLET SL PRN (23:56)
[2023-01-09] MEDS ORDERED: hydrOXYzine PAMOATE 25 MG CAPSULE (FP) PO PRN (23:56)
[2023-01-09] MEDS ORDERED: BENZONATATE 200 MG CAPSULE PO PRN (23:56)
[2023-01-09] MEDS ORDERED: MAG HYDROX/AL HYDROX/SIMETH 30 ML UNIT-DOSE CUP PO PRN (23:56)
[2023-01-09] MEDS ORDERED: BISMUTH SUBSALICYLATE 524 MG/30 ML PO PRN (23:56)
[2023-01-09] MEDS ORDERED: P-EPHED 60MG/TRIPROLIDI 2.5MG TABLET PO PRN (23:56)
[2023-01-09] MEDS ORDERED: ACETAMINOPHEN 325 MG TABLET (FP) PO PRN (23:56)
[2023-01-09] MEDS ORDERED: guaiFENesin 600 MG TABLET.ER (FP) PO PRN (23:56)
[2023-01-10] MEDS ORDERED: chlordiazePOXIDE HCL 25 MG CAPSULE PO ONE
[2023-01-10] MEDS ORDERED: chlordiazePOXIDE HCL 25 MG CAPSULE PO PRN
[2023-01-10] MEDS: chlordiazePOXIDE HCL 25 MG CAPSULE PO SCH ×4 (05:01→23:12)
[2023-01-10] MEDS: levETIRAcetam 500 MG TABLET (FP) PO SCH ×4 (05:02→23:12)
[2023-01-10] MEDS ORDERED: LACOSAMIDE 100 MG TABLET PO SCH (10:00)
[2023-01-10] MEDS: PRENATAL VITAMINS W/ FOLIC ACID TABLET (FP) PO SCH (10:27)
[2023-01-10] MEDS: LACOSAMIDE 50 MG TABLET PO SCH ×2 (10:27→23:11)
[2023-01-10] MEDS: IBUPROFEN 600 MG TABLET (FP) PO PRN (10:30)
[2023-01-10] MEDS: METHOCARBAMOL 500 MG TABLET PO PRN (10:30)
[2023-01-10 11:46] LABS: HEMATOCRIT 41.2 % (35.4-49); HEMOGLOBIN 13.6 GM/dL (11.7-16.9); MCH 30.2 pg (25.7-33.7); MEAN CELL VOLUME 91.7 fl (80-96); MEAN PLT VOLUME 8.1 fl (7.5-11.1); PLATELET COUNT 376 10^3/uL (134-434); RBC 4.49 M/mm3 (4.00-5.60); RDW 16.7 % (11.9-15.9); WHITE BLOOD COUNT 8.3 K/mm3 (4.0-10.0)
[2023-01-10 11:49] LABS: CALCIUM 9.8 mg/dL (8.5-10.1)
[2023-01-10 11:50] LABS: ALBUMIN 3.8 g/dl (3.4-5.0); BLOOD UREA NITROGEN 6.4 mg/dL (7-18)
[2023-01-10 11:53] LABS: CREATININE 0.8 mg/dL (0.55-1.3)
[2023-01-10 11:55] LABS: BILIRUBIN,TOTAL 0.6 mg/dL (0.2-1); TOT PROT 7.6 g/dl (6.4-8.2)
[2023-01-10] MEDS: BACITRACIN 0.9 GM PACKET TP SCH (14:52)
[2023-01-10] MEDS: THIAMINE HCL 100 MG TABLET (FP) PO SCH (23:11)
[2023-01-10] MEDS: MELATONIN 5 MG TABLETS PO SCH (23:11)
[2023-01-11] MEDS: levETIRAcetam 500 MG TABLET (FP) PO SCH ×3 (05:39→22:23)
[2023-01-11] MEDS: chlordiazePOXIDE HCL 25 MG CAPSULE PO SCH ×4 (05:39→22:24)
[2023-01-11] MEDS: LACOSAMIDE 50 MG TABLET PO SCH ×2 (10:12→22:23)
[2023-01-11] MEDS: BACITRACIN 0.9 GM PACKET TP SCH ×2 (10:12→12:33)
[2023-01-11] MEDS: PRENATAL VITAMINS W/ FOLIC ACID TABLET (FP) PO SCH (10:12)
[2023-01-11] MEDS: IBUPROFEN 600 MG TABLET (FP) PO PRN (17:30)
[2023-01-11] MEDS: MELATONIN 5 MG TABLETS PO SCH (22:23)
[2023-01-11] MEDS: THIAMINE HCL 100 MG TABLET (FP) PO SCH (22:23)
[2023-01-11] MEDS: ACETAMINOPHEN 325 MG TABLET (FP) PO PRN (22:25)
[2023-01-12] MEDS ORDERED: chlordiazePOXIDE HCL 10 MG CAPSULE PO PRN
[2023-01-12] MEDS: chlordiazePOXIDE HCL 10 MG CAPSULE PO SCH ×4 (05:41→22:17)
[2023-01-12] MEDS: levETIRAcetam 500 MG TABLET (FP) PO SCH ×3 (05:41→22:16)
[2023-01-12] MEDS: IBUPROFEN 600 MG TABLET (FP) PO PRN ×2 (05:44→18:03)
[2023-01-12] MEDS: BACITRACIN 0.9 GM PACKET TP SCH ×2 (10:23→10:24)
[2023-01-12] MEDS: PRENATAL VITAMINS W/ FOLIC ACID TABLET (FP) PO SCH (10:23)
[2023-01-12] MEDS: LACOSAMIDE 50 MG TABLET PO SCH ×2 (10:24→22:17)
[2023-01-12] MEDS: METHOCARBAMOL 500 MG TABLET PO PRN (18:03)
[2023-01-12] MEDS: MELATONIN 5 MG TABLETS PO SCH (22:16)
[2023-01-12] MEDS: THIAMINE HCL 100 MG TABLET (FP) PO SCH (22:17)
[2023-01-12] MEDS: ACETAMINOPHEN 325 MG TABLET (FP) PO PRN (22:18)
[2023-01-13] MEDS: chlordiazePOXIDE HCL 10 MG CAPSULE PO SCH ×2 (05:38→17:36)
[2023-01-13] MEDS: levETIRAcetam 500 MG TABLET (FP) PO SCH ×3 (05:39→22:25)
[2023-01-13] MEDS: PRENATAL VITAMINS W/ FOLIC ACID TABLET (FP) PO SCH (10:10)
[2023-01-13] MEDS: LACOSAMIDE 50 MG TABLET PO SCH ×2 (10:10→22:25)
[2023-01-13] MEDS: BACITRACIN 0.9 GM PACKET TP SCH ×2 (10:10→10:11)
[2023-01-13] MEDS: IBUPROFEN 600 MG TABLET (FP) PO PRN (17:37)
[2023-01-13] MEDS: METHOCARBAMOL 500 MG TABLET PO PRN (22:25)
[2023-01-13] MEDS: THIAMINE HCL 100 MG TABLET (FP) PO SCH (22:25)
[2023-01-13] MEDS: MELATONIN 5 MG TABLETS PO SCH (22:26)
[2023-01-14] MEDS ORDERED: chlordiazePOXIDE HCL 10 MG CAPSULE PO ONE (05:00)
[2023-01-14] MEDS: levETIRAcetam 500 MG TABLET (FP) PO SCH (05:44)
[2023-01-14 09:33] VITALS: BP 123/82; PULSE 98; RESP 18; TEMP 96.8
[2023-01-14] MEDS: BACITRACIN 0.9 GM PACKET TP SCH ×2 (09:36)
[2023-01-14] MEDS: LACOSAMIDE 50 MG TABLET PO SCH (09:36)
[2023-01-14] MEDS: PRENATAL VITAMINS W/ FOLIC ACID TABLET (FP) PO SCH (09:38)
== END 2023-01-14 10:49 | disposition home or self-care (01) | DRG 775 ==
LOC: YASAS 20:59 → Y3N 01-10 04:14
PROVIDERS: ADMIT Allergy & Immunology; ATTEND Surgery
PROC: HZ2ZZZZ Detoxification Services for Substance Abuse Treatment (ICD-10-PCS; principal; 2023-01-10)
DX: F10.230 Alcohol dependence with withdrawal, uncomplicated (principal); F17.210 Nicotine dependence, cigarettes, uncomplicated; F41.9 Anxiety disorder, unspecified; F32.A Depression, unspecified; J45.20 Mild intermittent asthma, uncomplicated; M54.50 Low back pain, unspecified; G40.909 Epilepsy, unspecified, not intractable, without status epilepticus; Z99.89 Dependence on other enabling machines and devices
CPT/HCPCS: 36415; 80053; 85027; 86780; 87635

== ENCOUNTER 2023-01-30 12:00 | Inpatient (IN) | payer OTHER ==
[2023-01-30 13:45] VITALS: BMI 21.9
[2023-01-30] MEDS ORDERED: IBUPROFEN 600 MG TABLET (FP) PO PRN (14:34)
[2023-01-30] MEDS ORDERED: POLYETHYLENE GLYCOL (HEALTHYLAX) 3350 17 GM PACKET PO PRN (14:34)
[2023-01-30] MEDS ORDERED: NALOXONE HCL 0.4 MG/ML VIAL IM PRN (14:34)
[2023-01-30] MEDS ORDERED: BENZONATATE 200 MG CAPSULE PO PRN (14:34)
[2023-01-30] MEDS ORDERED: NALOXONE HCL (KLOXXADO) 8 MG SPRAY NS PRN (14:34)
[2023-01-30] MEDS ORDERED: BISMUTH SUBSALICYLATE 262 MG/15 ML BTL PO PRN (14:34)
[2023-01-30] MEDS ORDERED: MAGNESIUM HYDROX 2400MG/30ML ORAL SUSPENSION 30 ML CUP PO PRN (14:34)
[2023-01-30] MEDS ORDERED: MAG HYDROX/AL HYDROX/SIMETH 30 ML UNIT-DOSE CUP PO PRN (14:34)
[2023-01-30] MEDS ORDERED: NICOTINE 10 MG CARTRIDGE (INHALER) IH PRN (14:34)
[2023-01-30] MEDS ORDERED: BENZOCAINE/MENTHOL (CHLORASEPTIC ) LOZENGE MM PRN (14:34)
[2023-01-30] MEDS ORDERED: NICOTINE POLACRILEX 2 MG GUM BUC PRN (14:34)
[2023-01-30] MEDS ORDERED: ONDANSETRON *ODT* 4 MG TABLET SL PRN (14:34)
[2023-01-30] MEDS ORDERED: guaiFENesin 600 MG TABLET.ER (FP) PO PRN (14:34)
[2023-01-30] MEDS ORDERED: LOPERAMIDE HCL 2 MG CAPSULE PO PRN (14:34)
[2023-01-30] MEDS ORDERED: DICYCLOMINE HCL 10 MG CAPSULE PO PRN (14:34)
[2023-01-30] MEDS: PRENATAL VITAMINS W/ FOLIC ACID TABLET (FP) PO SCH (16:08)
[2023-01-30] MEDS: chlordiazePOXIDE HCL 25 MG CAPSULE PO SCH ×2 (16:08→22:42)
[2023-01-30] MEDS: IBUPROFEN 400 MG TABLET (FP) PO PRN (16:11)
[2023-01-30] MEDS ORDERED: chlordiazePOXIDE HCL 25 MG CAPSULE ONE (16:14)
[2023-01-30] MEDS ORDERED: IBUPROFEN 400 MG TABLET (FP) PO ONE (16:14)
[2023-01-30] MEDS ORDERED: PRENATAL VITAMINS W/ FOLIC ACID TABLET (FP) PO ONE (16:15)
[2023-01-30] MEDS: MELATONIN 5 MG TABLETS PO SCH (22:41)
[2023-01-30] MEDS: THIAMINE HCL 100 MG TABLET (FP) PO SCH (22:41)
[2023-01-31] MEDS: chlordiazePOXIDE HCL 25 MG CAPSULE PO SCH ×4 (05:48→23:28)
[2023-01-31] MEDS ORDERED: ALBUTEROL SO4 HFA INHALER IH PRN (08:09)
[2023-01-31] MEDS: PRENATAL VITAMINS W/ FOLIC ACID TABLET (FP) PO SCH (10:33)
[2023-01-31] MEDS: METHOCARBAMOL 500 MG TABLET PO PRN (10:33)
[2023-01-31] MEDS: NICOTINE 14 MG/24 HOURS TOPICAL PATCH TD SCH (10:36)
[2023-01-31] MEDS ORDERED: PNEUMOC 20-VAL CONJ-DIP CRM/PF 0.5 ML SYRINGE IM ONE (12:00)
[2023-01-31] MEDS: levETIRAcetam 250 MG TABLET PO SCH ×2 (13:25→23:29)
[2023-01-31] MEDS: ACETAMINOPHEN 325 MG TABLET (FP) PO PRN (17:57)
[2023-01-31] MEDS: MELATONIN 5 MG TABLETS PO SCH (23:28)
[2023-01-31] MEDS: THIAMINE HCL 100 MG TABLET (FP) PO SCH (23:28)
[2023-02-01] MEDS: chlordiazePOXIDE HCL 25 MG CAPSULE PO SCH ×4 (06:51→22:35)
[2023-02-01] MEDS: levETIRAcetam 250 MG TABLET PO SCH ×3 (06:52→22:35)
[2023-02-01] MEDS: NICOTINE 14 MG/24 HOURS TOPICAL PATCH TD SCH (11:23)
[2023-02-01] MEDS: PRENATAL VITAMINS W/ FOLIC ACID TABLET (FP) PO SCH (11:23)
[2023-02-01] MEDS: THIAMINE HCL 100 MG TABLET (FP) PO SCH (22:34)
[2023-02-01] MEDS: MELATONIN 5 MG TABLETS PO SCH (22:35)
[2023-02-01] MEDS: METHOCARBAMOL 500 MG TABLET PO PRN (22:35)
[2023-02-02] MEDS: levETIRAcetam 250 MG TABLET PO SCH ×3 (05:57→22:06)
[2023-02-02] MEDS: chlordiazePOXIDE HCL 10 MG CAPSULE PO SCH ×4 (05:57→22:07)
[2023-02-02] MEDS: METHOCARBAMOL 500 MG TABLET PO PRN (10:28)
[2023-02-02] MEDS: PRENATAL VITAMINS W/ FOLIC ACID TABLET (FP) PO SCH (10:28)
[2023-02-02] MEDS: NICOTINE 14 MG/24 HOURS TOPICAL PATCH TD SCH (10:30)
[2023-02-02] MEDS: THIAMINE HCL 100 MG TABLET (FP) PO SCH (22:06)
[2023-02-02] MEDS: MELATONIN 5 MG TABLETS PO SCH (22:06)
[2023-02-03] MEDS: chlordiazePOXIDE HCL 10 MG CAPSULE PO SCH ×2 (05:21→17:26)
[2023-02-03] MEDS: levETIRAcetam 250 MG TABLET PO SCH ×3 (05:21→21:31)
[2023-02-03] MEDS: ACETAMINOPHEN 325 MG TABLET (FP) PO PRN (05:21)
[2023-02-03] MEDS: NICOTINE 14 MG/24 HOURS TOPICAL PATCH TD SCH (10:16)
[2023-02-03] MEDS: PRENATAL VITAMINS W/ FOLIC ACID TABLET (FP) PO SCH (10:16)
[2023-02-03] MEDS: THIAMINE HCL 100 MG TABLET (FP) PO SCH (21:31)
[2023-02-03] MEDS: IBUPROFEN 400 MG TABLET (FP) PO PRN (21:31)
[2023-02-03] MEDS: MELATONIN 5 MG TABLETS PO SCH (21:31)
[2023-02-04] MEDS ORDERED: chlordiazePOXIDE HCL 10 MG CAPSULE PO ONE (05:00)
[2023-02-04] MEDS: levETIRAcetam 250 MG TABLET PO SCH (05:58)
[2023-02-04 09:36] VITALS: BP 122/83; PULSE 79; RESP 16; TEMP 98
== END 2023-02-04 09:58 | disposition home or self-care (01) | DRG 775 ==
LOC: YASAS 12:00 → Y3N 15:05 → Y6N 15:12
PROVIDERS: ADMIT Allergy & Immunology; ATTEND Surgery
PROC: HZ2ZZZZ Detoxification Services for Substance Abuse Treatment (ICD-10-PCS; principal; 2023-01-30)
DX: F10.230 Alcohol dependence with withdrawal, uncomplicated (principal); F17.213 Nicotine dependence, cigarettes, with withdrawal; F10.282 Alcohol dependence with alcohol-induced sleep disorder; F10.24 Alcohol dependence with alcohol-induced mood disorder; G40.909 Epilepsy, unspecified, not intractable, without status epilepticus; G47.00 Insomnia, unspecified; J45.20 Mild intermittent asthma, uncomplicated; M54.50 Low back pain, unspecified; G89.29 Other chronic pain; R73.9 Hyperglycemia, unspecified; Z87.820 Personal history of traumatic brain injury; Z99.89 Dependence on other enabling machines and devices; Z59.00 Homelessness unspecified; Z56.0 Unemployment, unspecified
CPT/HCPCS: 87635; 90677

== ENCOUNTER 2023-05-01 13:05 | Inpatient (IN) | payer OTHER ==
[2023-05-01 14:56] VITALS: BMI 22.5
[2023-05-01] MEDS ORDERED: chlordiazePOXIDE HCL 25 MG CAPSULE PO PRN (16:38)
[2023-05-01] MEDS ORDERED: chlordiazePOXIDE HCL 25 MG CAPSULE ONE (16:55)
[2023-05-01] MEDS ORDERED: ACETAMINOPHEN 325 MG TABLET (FP) PO ONE (16:56)
[2023-05-01] MEDS ORDERED: hydrOXYzine PAMOATE 25 MG CAPSULE (FP) PO PRN (16:57)
[2023-05-01] MEDS ORDERED: MAGNESIUM HYDROX 2400MG/30ML ORAL SUSPENSION 30 ML CUP PO PRN (16:57)
[2023-05-01] MEDS ORDERED: IBUPROFEN 400 MG TABLET (FP) PO PRN (16:57)
[2023-05-01] MEDS ORDERED: BENZONATATE 200 MG CAPSULE PO PRN (16:57)
[2023-05-01] MEDS ORDERED: DICYCLOMINE HCL 10 MG CAPSULE PO PRN (16:57)
[2023-05-01] MEDS ORDERED: BISMUTH SUBSALICYLATE 524 MG/30 ML PO PRN (16:57)
[2023-05-01] MEDS ORDERED: NICOTINE POLACRILEX 2 MG GUM BUC PRN (16:57)
[2023-05-01] MEDS ORDERED: BENZOCAINE/MENTHOL (CHLORASEPTIC ) LOZENGE MM PRN (16:57)
[2023-05-01] MEDS ORDERED: POLYETHYLENE GLYCOL (HEALTHYLAX) 3350 17 GM PACKET PO PRN (16:57)
[2023-05-01] MEDS ORDERED: LOPERAMIDE HCL 2 MG CAPSULE PO PRN (16:57)
[2023-05-01] MEDS ORDERED: guaiFENesin 600 MG TABLET.ER (FP) PO PRN (16:57)
[2023-05-01] MEDS ORDERED: MAG HYDROX/AL HYDROX/SIMETH 30 ML UNIT-DOSE CUP PO PRN (16:57)
[2023-05-01] MEDS ORDERED: ONDANSETRON *ODT* 4 MG TABLET SL PRN (16:57)
[2023-05-01] MEDS ORDERED: METHOCARBAMOL 500 MG TABLET PO PRN (16:57)
[2023-05-01] MEDS ORDERED: P-EPHED 60MG/TRIPROLIDI 2.5MG TABLET PO PRN (16:57)
[2023-05-01] MEDS ORDERED: IBUPROFEN 600 MG TABLET (FP) PO PRN (16:57)
[2023-05-01] MEDS: chlordiazePOXIDE HCL 25 MG CAPSULE PO SCH ×2 (16:59→23:04)
[2023-05-01] MEDS ORDERED: ALBUTEROL SO4 HFA INHALER IH PRN (17:01)
[2023-05-01] MEDS: levETIRAcetam 500 MG TABLET (FP) PO SCH (23:04)
[2023-05-01] MEDS: MELATONIN 5 MG TABLETS PO SCH (23:04)
[2023-05-01] MEDS: THIAMINE HCL 100 MG TABLET (FP) PO SCH (23:05)
[2023-05-02] MEDS: chlordiazePOXIDE HCL 25 MG CAPSULE PO SCH ×4 (05:37→22:25)
[2023-05-02] MEDS: levETIRAcetam 500 MG TABLET (FP) PO SCH ×2 (10:38→22:25)
[2023-05-02] MEDS: PRENATAL VITAMINS W/ FOLIC ACID TABLET (FP) PO SCH (10:38)
[2023-05-02] MEDS: NICOTINE 7 MG/24 HOURS TOPICAL PATCH TD SCH (10:39)
[2023-05-02] MEDS: ACETAMINOPHEN 325 MG TABLET (FP) PO PRN (10:41)
[2023-05-02] MEDS: THIAMINE HCL 100 MG TABLET (FP) PO SCH (22:25)
[2023-05-02] MEDS: MELATONIN 5 MG TABLETS PO SCH (22:25)
[2023-05-03] MEDS: chlordiazePOXIDE HCL 25 MG CAPSULE PO SCH ×3 (05:28→16:48)
[2023-05-03] MEDS: levETIRAcetam 500 MG TABLET (FP) PO SCH (10:47)
[2023-05-03] MEDS: PRENATAL VITAMINS W/ FOLIC ACID TABLET (FP) PO SCH (10:47)
[2023-05-03] MEDS: NICOTINE 7 MG/24 HOURS TOPICAL PATCH TD SCH (10:48)
[2023-05-04] MEDS ORDERED: chlordiazePOXIDE HCL 10 MG CAPSULE PO PRN
[2023-05-04] MEDS: chlordiazePOXIDE HCL 25 MG CAPSULE PO SCH (00:03)
[2023-05-04] MEDS: THIAMINE HCL 100 MG TABLET (FP) PO SCH ×2 (00:03→23:54)
[2023-05-04] MEDS: MELATONIN 5 MG TABLETS PO SCH ×2 (00:03→23:54)
[2023-05-04] MEDS: levETIRAcetam 500 MG TABLET (FP) PO SCH ×3 (00:03→23:53)
[2023-05-04] MEDS: ACETAMINOPHEN 325 MG TABLET (FP) PO PRN (00:08)
[2023-05-04] MEDS: chlordiazePOXIDE HCL 10 MG CAPSULE PO SCH ×4 (05:50→23:54)
[2023-05-04 07:42] VITALS: BP 131/88; PULSE 61; RESP 18; TEMP 98
[2023-05-04] MEDS: PRENATAL VITAMINS W/ FOLIC ACID TABLET (FP) PO SCH (10:44)
[2023-05-04] MEDS: NICOTINE 7 MG/24 HOURS TOPICAL PATCH TD SCH ×2 (10:45→11:00)
[2023-05-05] MEDS ORDERED: chlordiazePOXIDE HCL 10 MG CAPSULE PO SCH (05:00)
[2023-05-06] MEDS ORDERED: chlordiazePOXIDE HCL 10 MG CAPSULE PO ONE (05:00)
== END 2023-05-04 17:35 | disposition short-term general hospital (02) | DRG 775 ==
LOC: YASAS 13:05 → Y6N 18:26
PROVIDERS: ADMIT Allergy & Immunology; ATTEND Surgery
PROC: HZ2ZZZZ Detoxification Services for Substance Abuse Treatment (ICD-10-PCS; principal; 2023-05-01)
DX: F10.230 Alcohol dependence with withdrawal, uncomplicated (principal); F17.210 Nicotine dependence, cigarettes, uncomplicated; F19.24 Other psychoactive substance dependence with psychoactive substance-induced mood disorder; F41.9 Anxiety disorder, unspecified; F32.A Depression, unspecified; G40.909 Epilepsy, unspecified, not intractable, without status epilepticus; M54.50 Low back pain, unspecified; R26.89 Other abnormalities of gait and mobility; Z99.89 Dependence on other enabling machines and devices; Z87.820 Personal history of traumatic brain injury; Z99.11 Dependence on respirator [ventilator] status
CPT/HCPCS: 87635